=== PATIENT | male | born 1935 | race Caucasian/White ===

== ENCOUNTER 2022-04-02 11:21 | Outpatient (CLI) | payer MEDICARE, BC, SELFPAY ==
[2022-04-02 12:45] LABS: Albumin* 3.9 g/dL (3.3-5.0); Chloride* 104 mmol/L (96-114)
[2022-04-02 12:46] LABS: Potassium* 4.1 mmol/L (3.6-5.1); Sodium* 141 mmol/L (135-149)
[2022-04-02 12:48] LABS: Aspartate Amino Transferase* 25 U/L (12-35); Bilirubin Total* 0.7 mg/dL (0.1-1.5); Blood Urea Nitrogen* 18 mg/dL (7-30); Carbon Dioxide* 32 mmol/L (20-32); Creatinine* 0.8 mg/dL (0.5-1.5); Estimated Glomerular Filt Rate 87 ml/min; Total Protein* 6.5 g/dL (6.0-8.3)
[2022-04-02 12:49] LABS: Alanine Aminotransferase* 25 U/L (4-50); Alkaline Phosphatase* 122 U/L (40-150); Calcium* 9.2 mg/dL (8.4-10.6); Glucose* 83 mg/dL (60-115)
== END 2022-04-02 11:22 | disposition home or self-care (01) ==
PROVIDERS: Visit Provider Family Medicine
DX: Z00.00 Encounter for general adult medical examination without abnormal findings (principal); I10 Essential (primary) hypertension
CPT/HCPCS: 80053

== ENCOUNTER 2022-05-20 06:20 | Day surgery (SDC) | payer MEDICARE, BC, SELFPAY ==
[2022-05-20] VITALS (9 sets, daily range): BP systolic 141–205; BP diastolic 85–116; PULSE 58–77; RESP 16; TEMP 36.6–36.9; O2SAT 87–98; BMI 28.4
--- NOTE | 2022-05-20 06:29 | SUR.PREOP ---
HOME COVID NEGATIVE.
[2022-05-20] MEDS: LACTATED RINGERS 1000 ML 1,000 ML 100 ML IV (06:45)
[2022-05-20] MEDS: SODIUM CHLORIDE 0.9 % (FLUSH) 10 ML SYRINGE IVF (06:45)
--- NOTE | 2022-05-20 07:15 | W.ANESCHARGE ---
Anesthesia Charges Start Date/Time Anesthesia Start Date: 05/20/22 Anesthesia Start Time: 07:26 Stop Date/Time Anesthesia Stop Date: 05/20/22 Anesthesia Stop Time: 09:30 Summary Extremes of Age - Over 70 or under 1: MDA
[2022-05-20] MEDS: CEFAZOLIN 2 GM INJ IVP (07:31)
[2022-05-20] MEDS: BUPIVACAINE 0.25% 30 ML INJECTION (07:43)
--- NOTE | 2022-05-20 09:13 | P.GSOP_ITS ---
Operative Note Date of procedure: 05/20/22 Pre-op diagnosis: 1. Symptomatic right inguinal hernia. Post-op diagnosis: 1. Right indirect and direct inguinal hernia. Type of Procedure: 1. Open right inguinal hernia repair with mesh. Indications: 86-year-old male was seen in clinic for evaluation of right inguinal bulge that was present for years. Patient was diagnosed with bilateral inguinal hernias years ago and had left inguinal hernia repair. The right inguinal hernia was not bothering him for many years. Over time the bulge has been increasing in size. Patient started to feel pain over the right inguinal bulge. This pain was mostly prominent with heavy lifting and being active while cutting wood, snow blowing a long driveway, and woodworking. On clinical exam patient had a moderately-sized right inguinal hernia extending to the superior border of the scrotum. The hernia was reducible. Given patient's clinical history and his physical exam, an open right inguinal hernia repair was recommended. The procedure was discussed in detail. The risks associated procedure including infection, bleeding, nerve injury, nerve pain, and hernia recurrence were all discussed with the patient, and he agreed to proceed. Procedure Description: After discussing the risks and benefits of the procedure, the patient signed informed consent.? The operative site was marked and the patient was brought to the operating room and placed on the operating table in supine position.? Care was taken to pad the patient's pressure points.?? The patient was then sedated by anesthesia.?? The operative site was then prepped and draped in the usual sterile fashion.? A time-out was then performed. Surgical site was prepped and draped in sterile fashion. Site of the incision was marked with a marking pen on the right side and local anesthetic was injected. An oblique incision was made just above and medial to inguinal ligament. Subcutaneous tissue was dissected to external obliques. Small incision was made through the external oblique aponeurosis with scalpel. I then used Metzenbaum scissors to dissect under external obliques and extend my incision. Mosquito clamps were placed on the edges of external oblique exposing the inguinal floor. The right Ilioinguinal nerve was identified and was going through the plain of dissection. The nerve was divided proximally and distally and a 3 cm segment of it was excised. This was not sent to pathology. I then identified the spermatic cord and the hernia sac. I bluntly dissected subcutaneous tissues in order to place Nicolette drain around the cord structures. Cremasteric fibers were peeled off and dissected off the hernia sac and cord structures. There was evidence of indirect inguinal hernia. There was also a direct inguinal hernia protruding immediately superior to the pubic tubercle. Preperitoneal fat was noted to be protruding in the direct hernia. The indirect hernia sac was from the spermatic cord bluntly and with cautery. The indirect hernia sac was incised and examined from the inside. The hernia sac was bilobed and fat was incarcerated in the medial part of the hernia sac. This fat was a part of the hernia sac. It was dissected off the hernia sac and excised was cautery. Hemostasis was achieved with cautery and Vicryl ties. No intraabdominal organs were incarcerated in the hernia sac. A stitch using 2-0 Vicryl was placed near the base of the hernia sac through the sac and the hernia sac tied off. Hernia sac was then excised and not sent to pathology. The cut edge of the hernia sac was then oversewn with a running locking 3-0 Vicryl suture. This was then pushed into preperitoneal space through the internal r ing. Surgical field was examined for bleeding and hemostasis was achieved with cautery and Vicryl ties. An extra-large Bard mesh plug was inserted through the internal ring and secured to the adjacent tissues with interrupted 0-0 Neurolon sutures. I also used a medium-sized Bard mesh plug for the direct hernia space. This mesh plug was secured in place with interrupted 0-0 Nurolon sutures. A large Bard mesh onlay was also used for hernia repair. The mesh onlay was sutured in place with interrupted 0-0 Neurolon sutures to the conjoint tendon medially and shelving edge laterally, pubic tubercle inferiorly. Simple interrupted sutures were placed using 0-0 Neurolon at the base of internal inguinal ring making it only large enough to fit a tip of one finger through. Spermatic cord was placed back into scrotum. [place] drain was removed. External oblique aponeurosis was closed with a running 3-0 Vicryl. Additional local anesthetic was injected into subcutaneous tissues. Adalid's fascia and subcutaneous tissue was re- approximated with interrupted Vicryl stitches. Skin incision was closed with 4-0 Monocryl subcuticular stitch. Steri strips and sterile dressing were applied over incision. All counts were correct at the end of the case. Patient tolerated this procedure well and was transferred to PACU in stable condition. Findings: Large internal inguinal ring with indirect hernia and also a smaller direct hernia just superior to the pubic tubercle. Implants: Mesh plugs x2, and mesh onlay. Anesthesia: MAC and local Surgeon: Gui Barrera MD Estimated blood loss (mL): 10 Condition: stable Disposition: same day
--- NOTE | 2022-05-20 09:19 | W.ANESCHARGE ---
Anesthesia Charges Start Date/Time Anesthesia Start Date: 05/20/22 Anesthesia Start Time: 07:26 Stop Date/Time Anesthesia Stop Date: 05/20/22 Anesthesia Stop Time: 09:30
[2022-05-20] MEDS: ALBUTEROL SULFATE 2.5 MG/3 ML VIAL.NEB NEB (10:10)
== END 2022-05-20 11:20 | disposition home or self-care (01) ==
PROVIDERS: PCP Family Medicine; Visit Provider Surgery
PROC: (CPT 49505; principal; 2022-05-20 07:30)
DX: K40.90 Unilateral inguinal hernia, without obstruction or gangrene, not specified as recurrent (principal)
CPT/HCPCS: 49505; 750; 830; 94640; 99100; C1781; J0690; J1100; J2405; J2704; J3010; J3490; J7120

== ENCOUNTER 2022-09-04 07:15 | Emergency (ER) | payer MEDICARE, BC, SELFPAY ==
[2022-09-04] VITALS (16 sets, daily range): BP systolic 142–188; BP diastolic 87–103; PULSE 51–61; RESP 18; TEMP 35.9; O2SAT 89–95; BMI 26.5
--- NOTE | 2022-09-04 07:58 | ED.GENADULT ---
HPI - General Adult General Time Seen by Provider: 07:58 Date Seen: 09/04/22 Chief complaint: Dizziness/Vertigo Stated complaint: dizzy and nausea Time Seen by Provider: 09/04/22 07:57 Source: patient and RN notes reviewed Mode of arrival: ambulatory Limitations: no limitations Related Data Previous Rx's Medication Instructions Recorded albuterol sulfate 90 mcg/actuation 2 puff inhalation Q4-6H PRN 05/06/22 aerosol inhaler (Ventolin HFA) shortness of breath or wheezing #8.5 grams Allergies Allergy/AdvReac Type Severity Reaction Status Date / Time Shrimp Flavor Allergy Unknown breathing Uncoded 05/29/22 11:13 baking soda AdvReac Mild Uncoded 09/04/22 07:26 PFSH [facility] Medical History (Updated 05/17/22 @ 06:59 by Joelle Rios, RANDALL) Wrist fracture, right ?S62.101A - Fracture of unspecified carpal bone, right wrist, initial encounter for closed fracture (ICD-10) Hiatal hernia ?K44.9 - Diaphragmatic hernia without obstruction or gangrene (ICD-10) Thoracic aortic aneurysm ?I71.20 - Thoracic aortic aneurysm, without rupture, unspecified (ICD-10) HTN (hypertension) ?I10 - Essential (primary) hypertension (ICD-10) Surgical History (Updated 05/29/22 @ 11:14 by Gui Barrera MD) H/O right inguinal hernia repair ?Z98.890 - Other specified postprocedural states (ICD-10) ?Z87.19 - Personal history of other diseases of the digestive system (ICD-10) History of repair of hiatal hernia ?Z98.890 - Other specified postprocedural states (ICD-10) ?Z87.19 - Personal history of other diseases of the digestive system (ICD-10) H/O left inguinal hernia repair ?Z98.890 - Other specified postprocedural states (ICD-10) ?Z87.19 - Personal history of other diseases of the digestive system (ICD-10) Social History (Updated 04/10/22 @ 10:39 by Gui Barrera MD) Narrative: Patient denies smoking and rarely drinks alcohol. He is retired but is very active. He lives on his own but his daughter lives only 1.5 miles away from him and is helping him when he needs something. Smoking Status: Former smoker Do you use any of these nicotine containing products: None Second hand tobacco smoke exposure: No How often do you have a drink containing alcohol: never How often do you have six or more drinks on one occasion: Never AUDIT-C Alcohol total score: 0 Non-prescribed substance use: denies use Caffeine: Yes (COFFEE) Little interest or pleasure in doing things: not at all Feeling down, depressed, or hopeless: not at all service: No Exam Const: Vital Signs, click to edit/add: Vital Signs - 24 hr 09/04/22 07:27 Temperature 96.7 F L Pulse Rate [Pulse Oximeter] 57 L Respiratory Rate 18 Blood Pressure [Ri ght Upper Arm] 182/103 H Pulse Oximetry 92 Oxygen Delivery Me thod Room Air Course Vital Signs Vital signs: Initial Vital Signs Temperature 96.7 F L 09/04/22 07:27 Temperature Source Temporal Artery Scan 09/04/22 07:27 Pulse Rate 57 L 09/04/22 07:27 Respiratory Rate 18 09/04/22 07:27 Blood Pressure 182/103 H 09/04/22 07:27 Blood Pressure Mean 129 H 09/04/22 07:27 Blood Pressure Position Sitting 09/04/22 07:27 Pulse Oximetry 92 09/04/22 07:27 Oxygen Delivery Method Room Air 09/04/22 07:27 Vital Signs Temperature 96.7 F L 09/04/22 07:27 Pulse Rate 57 L 09/04/22 07:27 Respiratory Rate 18 09/04/22 07:27 Blood Pressure 182/103 H 09/04/22 07:27 Pulse Oximetry 92 09/04/22 07:27 Oxygen Delivery Method Room Air 09/04/22 07:27 Temperature 96.7 F L 09/04/22 07:27 Pulse Rate 57 L 09/04/22 07:27 Respiratory Rate 18 09/04/22 07:27 Blood Pressure 182/103 H 09/04/22 07:27 Pulse Oximetry 92 09/04/22 07:27 Oxygen Delivery Method Room Air 09/04/22 07:27 Discharge Plan Discharge Prescriptions: No Action albuterol sulfate [Ventolin HFA] 90 mcg/actuation HFA aerosol inhaler 2 puff inhalation Q4-6H PRN (Reason: shortness of breath or wheezing) Qty: 8.5 2RF Follow Up/Referrals: Balaji Del Toro MD [Primary Care Provider] -
--- NOTE | 2022-09-04 08:03 | ED_ITS ---
HPI - Dizziness General Date Seen: 09/04/22 <Roberto Carlos Wick MD - Last Filed: 09/05/22 12:07> Chief Complaint: Dizziness/Vertigo <Roberto Carlos Wick MD - Last Filed: 09/05/22 12:07> Stated Complaint: dizzy and nausea <Roberto Carlos Wick MD - Last Filed: 09/05/22 12:07> Time Seen by Provider: 09/04/22 07:57 <Roberto Carlos Wick MD - Last Filed: 09/05/22 12:07> Source: patient and family <Roberto Carlos Wick MD - Last Filed: 09/05/22 12:07> Mode of arrival: ambulatory <Roberto Carlos Wick MD - Last Filed: 09/05/22 12:07> Limitations: no limitations <Roberto Carlos Wick MD - Last Filed: 09/05/22 12:07> History of Present Illness HPI Narrative: Patient is an 87-year-old gentleman who presents here with the history of dizziness, this came on after he got up this morning he walked to a his kitchen, sat down and felt dizzy. Whenever he moves his head he notices that he feels like he is almost like a drunken soldier?. Has not drank alcohol for the last 11 years, no history of trauma falls, denies any problems with visual with this. He does not have ringing in his ears, he also does not have any numbness tingling weakness in his hands or his feet, he sat on the drive over here from [place] he fell fine until he had to get out of his car. He did throw up 3 times at home. Never before had this. <Roberto Carlos Wick MD - Last Filed: 09/05/22 12:07> MD elicited complaint: dizziness, lightheadedness, difficulty walking and disequilibrium <Roberto Carlos Wick MD - Last Filed: 09/05/22 12:07> Onset (ago): hour(s) <Roberto Carlos Wick MD - Last Filed: 09/05/22 12:07> Timing: sudden onset <Roberto Carlos Wick MD - Last Filed: 09/05/22 12:07> Severity: moderate <Roberto Carlos Wick MD - Last Filed: 09/05/22 12:07> Description: sense of movement, room spinning, off-balance and difficulty walking <Roberto Carlos Wick MD - Last Filed: 09/05/22 12:07> History of similar symptoms: No <Roberto Carlos Wick MD - Last Filed: 09/05/22 12:07> Exacerbating factors: change in body position <Roberto Carlos Wick MD - Last Filed: 09/05/22 12:07> Relieving factors: keeping eyes closed <Roberto Carlos Wick MD - Last Filed: 09/05/22 12:07> Associated symptoms: denies other symptoms <Roberto Carlos Wick MD - Last Filed: 09/05/22 12:07> Related Data Home Medications: Previous Rx's Medication Instructions Recorded albuterol sulfate 90 mcg/actuation 2 puff inhalation Q4-6H PRN 05/06/22 aerosol inhaler (Ventolin HFA) shortness of breath or wheezing #8.5 grams <Roberto Carlos Wick MD - Last Filed: 09/05/22 12:07> Allergies/Adverse Reactions: Allergies Allergy/AdvReac Type Severity Reaction Status Date / Time Shrimp Flavor Allergy Unknown breathing Uncoded 05/29/22 11:13 baking soda AdvReac Mild Uncoded 09/04/22 07:26 <Roberto Carlos Wick MD - Last Filed: 09/05/22 12:07> Review of Systems Status of ROS: Reports: 10 or more systems reviewed and unremarkable except as noted in History and below <Roberto Carlos Wick MD - Last Filed: 09/05/22 12:07> [facility] Medical History: Medical History Wrist fracture, right ?S62.101A - Fracture of unspecified carpal bone, right wrist, initial encounter for closed fracture (ICD-10) Hiatal hernia ?K44.9 - Diaphragmatic hernia without obstruction or gangrene (ICD-10) Thoracic aortic aneurysm ?I71.20 - Thoracic aortic aneurysm, without rupture, unspecified (ICD-10) HTN (hypertension) ?I10 - Essential (primary) hypertension (ICD-10) <Roberto Carlos Wick MD - Last Filed: 09/05/22 12:07> Surgical History: Surgical History H/O right inguinal hernia repair ?Z98.890 - Other specified postprocedural states (ICD-10) ?Z87.19 - Personal history of other diseases of the digestive system (ICD-10) History of repair of hiatal hernia ?Z98.890 - Other specified postprocedural states (ICD-10) ?Z87.19 - Personal history of other diseases of the digestive system (ICD-10) H/O left inguinal hernia repair ?Z98.890 - Other specified postprocedural states (ICD-10) ?Z87.19 - Personal history of other diseases of the digestive system (ICD-10) <Roberto Carlos Wick MD - Last Filed: 09/05/22 12:07> Social History: Social History Narrative: Patient denies smoking and rarely drinks alcohol. He is retired but is very active. He lives on his own but his daughter lives only 1.5 miles away from him and is helping him when he needs something. Smoking Status: Former smoker Do you use any of these nicotine containing products: None Second hand tobacco smoke exposure: No How often do you have a drink containing alcohol: never How often do you have six or more drinks on one occasion: Never AUDIT-C Alcohol total score: 0 Non-prescribed substance use: denies use Caffeine: Yes (COFFEE) Little interest or pleasure in doing things: not at all Feeling down, depressed, or hopeless: not at all service: No <Roberto Carlos Wick MD - Last Filed: 09/05/22 12:07> Exam Narrative: Exam Narrative: Patient is a 87-year-old gentleman here who presents with his daughter for evaluation of dizziness. He is speaking normally to me in the room, no slurring of his speech, facial symmetry is noted. GCS is 15/15, stroke scale is 0. Pupils equal round reactive to light, he has absence of nystagmus, at rest. Carotid upstrokes are equal bilaterally JVP is flat, cranial nerves 3-12 are normal, TMs bilaterally are normal, oropharynx is normal, some limitation of right-sided cervical rotation is noted. Which she says is chronic. Chest is clear heart sounds are normal no clicks murmurs or gallops abdomen is soft there is no guarding, bowel sounds no clicks murmurs or gallops noted. Moves all extremities independently well fine motor movements fingers nose testing is normal, distal and proximal muscle strength is equal and normal, muscle mass is normal, fine motor movements fingers nose testing is normal, appears to be right-handed. <Roberto Carlos Wick MD - Last Filed: 09/05/22 12:07> Const: Vital Signs, click to edit/add: Vital Signs - 24 hr 09/04/22 13:11 Pulse Rate 57 L Pulse Oximetry 89 <Roberto Carlos Wick MD - Last Filed: 09/05/22 12:07> Vital Signs, click to edit/add: Vital Signs - 24 hr 09/04/22 13:11 Pulse Rate 57 L Pulse Oximetry 89 <Yusra Benitez MD - Last Filed: 09/04/22 13:35> Documenting provider has reviewed patient's vital signs: yes <Roberto Carlos Wick MD - Last Filed: 09/05/22 12:07> Course Reevaluation(s) Time of Reevaluation #1: 09:47 <Yusra Benitez MD - Last Filed: 09/04/22 13:35> Reevaluation #1: Have reviewed with patient that head CT is not showing any acute abnormality. Did review with patient and his family however that small strokes would not necessarily show up on a head CT. He maybe is feeling a bit better but sometimes if he moves will feel the imbalance type vertigo symptom. I am going to have nursing staff walk him. If he is not completely improved, will consider MRI of his brain. Of note his blood pressure systolic is now 140 and improved. It was elevated to a systolic of 180 when he came in. I do not see any nystagmus at this time. Nursing staff reported that patient was able to ambulate but complained a lot of dizziness or vertigo, especially when he 1st was getting up and then when turning with walking. We are going to proceed with brain MRI. <Yusra Benitez MD - Last Filed: 09/04/22 13:35> Time of Reevaluation #2: 13:30 <Yusra Benitez MD - Last Filed: 09/04/22 13:35> Reevaluation #2: Have reviewed with patient the MRI is not showing any acute ischemia. Did review the amyloid. He states his memory isn't quite what it used to be. Did review with him that this is a finding that can be associated with cognitive impairment/dementia. Recommend follow up with his primary care provider. Also recommended that he work on controlling his blood pressure for improved cardiovascular risks. He did not seem to enthusiastically about doing this. <Yusra Benitez MD - Last Filed: 09/04/22 13:35> Consultations Consultation #1: Have spoken with Dr. Moscoso from [facility]rology at [place]. Case reviewed. No further interventions needed, did recommend treating hypertension which we will have patient follow-up with his primary care provider. <Yusra Benitez MD - Last Filed: 09/04/22 13:35> Time: 13:07 <Yusra Benitez MD - Last Filed: 09/04/22 13:35> Vital Signs Vital signs: Initial Vital Signs Temperature 96.7 F L 09/04/22 07:27 Temperature Source Temporal Artery Scan 09/04/22 07:27 Pulse Rate 57 L 09/04/22 07:27 Respiratory Rate 18 09/04/22 07:27 Blood Pressure 182/103 H 09/04/22 07:27 Blood Pressure Mean 129 H 09/04/22 07:27 Blood Pressure Position Sitting 09/04/22 07:27 Pulse Oximetry 92 09/04/22 07:27 Oxygen Delivery Method Room Air 09/04/22 07:27 Vital Signs Temperature 96.7 F L 09/04/22 07:27 Pulse Rate 57 L 09/04/22 07:27 Respiratory Rate 18 09/04/22 07:27 Blood Pressure 182/103 H 09/04/22 07:27 Pulse Oximetry 92 09/04/22 07:27 Oxygen Delivery Method Room Air 09/04/22 07:27 Temperature 96.7 F L 09/04/22 07:27 Pulse Rate 57 L 09/04/22 13:11 Respiratory Rate 18 09/04/22 07:27 Blood Pressure 142/87 H 09/04/22 09:32 Pulse Oximetry 89 09/04/22 13:11 Oxygen Delivery Method Room Air 09/04/22 07:27 <Roberto Carlos Wick MD - Last Filed: 09/05/22 12:07> Initial Vital Signs Temperature 96.7 F L 09/04/22 07:27 Temperature Source Temporal Artery Scan 09/04/22 07:27 Pulse Rate 57 L 09/04/22 07:27 Respiratory Rate 18 09/04/22 07:27 Blood Pressure 182/103 H 09/04/22 07:27 Blood Pressure Mean 129 H 09/04/22 07:27 Blood Pressure Position Sitting 09/04/22 07:27 Pulse Oximetry 92 09/04/22 07:27 Oxygen Delivery Method Room Air 09/04/22 07:27 Vital Signs Temperature 96.7 F L 09/04/22 07:27 Pulse Rate 57 L 09/04/22 07:27 Respiratory Rate 18 09/04/22 07:27 Blood Pressure 182/103 H 09/04/22 07:27 Pulse Oximetry 92 09/04/22 07:27 Oxygen Delivery Method Room Air 09/04/22 07:27 Temperature 96.7 F L 09/04/22 07:27 Pulse Rate 57 L 09/04/22 13:11 Respiratory Rate 18 09/04/22 07:27 Blood Pressure 142/87 H 09/04/22 09:32 Pulse Oximetry 89 09/04/22 13:11 Oxygen Delivery Method Room Air 09/04/22 07:27 <Yusra Benitez MD - Last Filed: 09/04/22 13:35> MDM - Dizziness MDM Narrative Medical decision making narrative: Life-threatening differential diagnosis considered include, CVA, other differential diagnosis include BPPV, labyrinthitis, Meniere's disease, vestibular neuronitis, migraine, multiple sclerosis, otitis media, viral syndrome as well as other etiologies. He also is tells me feels weak, for that reason I will do a troponin and also an EKG I will sign over to my partner, for further care and delineation. <Roberto Carlos Wick MD - Last Filed: 09/05/22 12:07> Medical Records Attestation: I reviewed the patient's medical records. <Roberto Carlos Wick MD - Last Filed: 09/05/22 12:07> Lab Data Attestation: I reviewed the patient's lab results. <Yusra Benitez MD - Last Filed: 09/04/22 13:35> Labs: Lab Results 09/04/22 09/04/22 Range/Units 07:50 09:50 WBC 7.70 (4.50-11.00) K/uL RBC 5.23 (4.30-5.90) m/uL Hgb 15.8 (13.5-17.5) gm/dL Hct 48.7 (37.0-53.0) % MCV 93 (80-100) fL MCH 30 (26-34) pg MCHC 32 (32-36) gm/dL RDW Coeff of Jeniffer 13.7 (11.5-15.5) % Plt Count 146 (140-440) K/uL Neut % (Auto) 76.4 H (42.0-72.0) % Lymph % (Auto) 13.2 L (20-44) % [place] % (Auto) 6.1 (0.0-11.0) % Eos % (Auto) 3.2 (0.0-7.0) % Baso % (Auto) 0.8 (0.0-3.0) % Neut # (Auto) 5.90 (1.7-7.0) K/uL Lymph # (Auto) 1.00 (0.90-2.90) K/uL [place] # (Auto) 0.50 (0.00-0.90) K/UL Eos # (Auto) 0.25 (0.00-0.50) K/uL Baso # (Auto) 0.06 (0.00-0.30) K/uL Sodium 136 (135-149) mmol/L Potassium 3.9 (3.6-5.1) mmol/L Chloride 103 (96-114) mmol/L Carbon Dioxide 30 (20-32) mmol/L BUN 19 (7-30) mg/dL Creatinine 0.8 (0.5-1.5) mg/dL Estimated Creat Clear 51.30 Estimated GFR 86 ml/min Glucose 101 (60-115) mg/dL Calcium 8.8 (8.4-10.6) mg/dL Urine Color Yellow (Yellow) Urine Appearance Cloudy A (Clear) Urine pH 7.5 (5.0-8.5) Ur Specific [place] 1.020 (1.000-1.030) Urine Protein Negative (Negative) Urine Glucose (UA) Negative (Negative) Urine Ketones Negative (Negative) Urine Blood Negative (Negative) Urine Nitrite Positive A (Negative) Urine Bilirubin Negative (Negative) Urine Urobilinogen 1.0 (0.2-1.0) Ur Leukocyte Esterase Negative (Negative) Urine RBC 0-2 (0-2) Urine WBC 0-2 (0-5) Ur Squamous Epith Cells None (None-Few) Urine Bacteria Many A (None) POC Troponin I 0.00 L (0.01-0.04) ng/ml <Roberto Carlos Wick MD - Last Filed: 09/05/22 12:07> Lab Results 09/04/22 09/04/22 Range/Units 07:50 09:50 WBC 7.70 (4.50-11.00) K/uL RBC 5.23 (4.30-5.90) m/uL Hgb 15.8 (13.5-17.5) gm/dL Hct 48.7 (37.0-53.0) % MCV 93 (80-100) fL MCH 30 (26-34) pg MCHC 32 (32-36) gm/dL RDW Coeff of Jeniffer 13.7 (11.5-15.5) % Plt Count 146 (140-440) K/uL Neut % (Auto) 76.4 H (42.0-72.0) % Lymph % (Auto) 13.2 L (20-44) % [place] % (Auto) 6.1 (0.0-11.0) % Eos % (Auto) 3.2 (0.0-7.0) % Baso % (Auto) 0.8 (0.0-3.0) % Neut # (Auto) 5.90 (1.7-7.0) K/uL Lymph # (Auto) 1.00 (0.90-2.90) K/uL [place] # (Auto) 0.50 (0.00-0.90) K/UL Eos # (Auto) 0.25 (0.00-0.50) K/uL Baso # (Auto) 0.06 (0.00-0.30) K/uL Sodium 136 (135-149) mmol/L Potassium 3.9 (3.6-5.1) mmol/L Chloride 103 (96-114) mmol/L Carbon Dioxide 30 (20-32) mmol/L BUN 19 (7-30) mg/dL Creatinine 0.8 (0.5-1.5) mg/dL Estimated Creat Clear 51.30 Estimated GFR 86 ml/min Glucose 101 (60-115) mg/dL Calcium 8.8 (8.4-10.6) mg/dL Urine Color Yellow (Yellow) Urine Appearance Cloudy A (Clear) Urine pH 7.5 (5.0-8.5) Ur Specific [place] 1.020 (1.000-1.030) Urine Protein Negative (Negative) Urine Glucose (UA) Negative (Negative) Urine Ketones Negative (Negative) Urine Blood Negative (Negative) Urine Nitrite Positive A (Negative) Urine Bilirubin Negative (Negative) Urine Urobilinogen 1.0 (0.2-1.0) Ur Leukocyte Esterase Negative (Negative) Urine RBC 0-2 (0-2) Urine WBC 0-2 (0-5) Ur Squamous Epith Cells None (None-Few) Urine Bacteria Many A (None) POC Troponin I 0.00 L (0.01-0.04) ng/ml <Yusra Benitez MD - Last Filed: 09/04/22 13:35> Imaging Data CT scan - head: Attestation: I have reviewed the pertinent imaging results. <Yusra Robbins MD - Last Filed: 09/04/22 13:35> Radiologist's impression: Patient: AGNES COBIAN Facility:?[facility] Patient ID:?[id number] Site Patient ID:?[id number] Site :?[id number] Study:?CT Head WITHOUT-09/04/2022 9:23:39 AM Ordering Physician:Linette Azevedo Final Report: INDICATION: Dizziness COMPARISON: None TECHNIQUE: CT examination of the head was performed as axial sections without intravenous contrast. Images were obtained from the vertex of the skull through the skull base. Please note that all CT scans at this facility use dose modulation, iterative reconstruction, and/or weight-based dosing when appropriate to reduce radiation dose to as low as reasonably achievable. FINDINGS: The brain shows no sign of mass lesion, mass effect, hemorrhage, or edema. There are involutional changes. There is moderate cortical atrophy and there is moderate to severe white matter disease. There is no hydrocephalus. The visualized portions of the orbits are normal in appearance. The osseous structures are normal in appearance with no sign of abnormality in the skull base or calvarium. IMPRESSION: Involutional changes. No acute-appearing findings. Please note that all CT scans at this facility use dose modulation, iterative reconstruction, and/or weight-based dosing when appropriate to reduce radiation dose to as low as reasonably achievable. Dictated by Ken Conn MD @ 09/04/2022 9:31:14 AM (Electronic Signature) <Yusra Benitez MD - Last Filed: 09/04/22 13:35> MRI - head: Attestation: I have reviewed the pertinent imaging results. <Yusra Robbins MD - Last Filed: 09/04/22 13:35> Radiologist's impression: Patient: AGNES COBIAN Facility:?[facility] Patient ID:?[id number] Site Patient ID:?[id number]. Site :?[id number] Study:?MRI Head W/O-09/04/2022 11:02:40 AM Ordering Physician:Rafael Meng Final Report: INDICATION: Vertigo. Imbalance. Dizziness. TECHNIQUE: Brain MRI without contrast. The following sequences were obtained: Sagittal T1 weighted sequence. DWI and ADC mapping sequences. Axial FLAIR and SAMUEL T2 weighted sequences. Susceptibility or GRE sequence. COMPARISON: Head CT from 09/04/2022. FINDINGS: No evidence of acute ischemia. Multiple foci of susceptibility artifact within both cerebral hemispheres, consistent with micro hemorrhages. Patchy T2/FLAIR hyperintensity within the supratentorial white matter and to a lesser extent the central brainstem, typical for chronic microvascular ischemic changes. No mass effect or herniation. No hydrocephalus or extra-axial collections. The pituitary gland, parasellar structures and optic chiasm are normal. All the major intracranial vascular structures demonstrate normal flow-related signal. The orbital contents are normal. No calvarial or skull base marrow replacing process. Moderate to high-grade mucosal thickening involving the frontoethmoidal recesses, right-sided ethmoid air cells and maxillary sinuses. No extracranial soft tissue findings. IMPRESSION: 1. No acute infarction or other acute intracranial pathology. 2. Moderate chronic microvascular ischemic changes within the supratentorial white matter. 3. Multiple cerebral microbleeds, likely chronic and due to amyloid angiopathy given their distribution. <Yusra Benitez MD - Last Filed: 09/04/22 13:35> Discharge Plan Discharge Clinical Impression: Vertigo, Imbalance <Roberto Carlos Wick MD - Last Filed: 09/05/22 12:07> Patient Disposition: Home, Self-Care <Roberto Carlos Wick MD - Last Filed: 09/05/22 12:07> Condition: Stable <Roberto Carlos Wick MD - Last Filed: 09/05/22 12:07> Instructions: Vertigo (ED) <Roberto Carlos Wick MD - Last Filed: 09/05/22 12:07> Additional Instructions: No evidence of stroke was found. Do need to follow up in clinic for recheck of your blood pressure, highly recommend treating for hypertension for brain and vessel protection if blood pressure remains elevated. The MRI did show some amyloid deposits which can go long with cognitive impairment and dementia, can talk to your primary care provider about this further. We are not diagnosing either of these conditions in the ER at this time, can be talked about worked up further with your primary care provider if felt applicable. Recommend physical therapy referral if you have ongoing vertigo, can get this through your primary care provider. Meclizine is sold [id number] and can be taken if you have ongoing vertigo symptoms. This medicine can be sedating, need to be careful with activity or any operation of machinery while taking it. <Roberto Carlos Wick MD - Last Filed: 09/05/22 12:07> Prescriptions: No Action albuterol sulfate [Ventolin HFA] 90 mcg/actuation HFA aerosol inhaler 2 puff inhalation Q4-6H PRN (Reason: shortness of breath or wheezing) Qty: 8.5 2RF <Roberto Carlos Wick MD - Last Filed: 09/05/22 12:07> Follow Up/Referrals: Balaji Del Toro MD [Primary Care Provider] - <Roberto Carlos Wick MD - Last Filed: 09/05/22 12:07> Stand Alone Forms: My[facility] Info Instructions <Roberto Carlos Wick MD - Last Filed: 09/05/22 12:07>
--- NOTE | 2022-09-04 08:08 | CRLHL7_ITS ---
For Patients: As a result of the Century Cures Act, medical imaging exams and procedure reports are released immediately into your electronic medical record. You may view this report before your referring provider. If you have questions, please contact your health care provider. INDICATION: Dizziness COMPARISON: None TECHNIQUE: CT examination of the head was performed as axial sections without intravenous contrast. Images were obtained from the vertex of the skull through the skull base. Please note that all CT scans at this facility use dose modulation, iterative reconstruction, and/or weight-based dosing when appropriate to reduce radiation dose to as low as reasonably achievable. FINDINGS: The brain shows no sign of mass lesion, mass effect, hemorrhage, or edema. There are involutional changes. There is moderate cortical atrophy and there is moderate to severe white matter disease. There is no hydrocephalus. The visualized portions of the orbits are normal in appearance. The osseous structures are normal in appearance with no sign of abnormality in the skull base or calvarium. IMPRESSION: Involutional changes. No acute-appearing findings. Please note that all CT scans at this facility use dose modulation, iterative reconstruction, and/or weight-based dosing when appropriate to reduce radiation dose to as low as reasonably achievable. Dictated by Ken Conn MD @ 09/04/2022 9:31:14 AM (Electronically Signed)
[2022-09-04 08:17] LABS: Basophils Absolute Auto 0.06 K/uL (0.00-0.30); Basophils Percent Auto 0.8 % (0.0-3.0); Eosinophils Absolute Auto 0.25 K/uL (0.00-0.50); Eosinophils Percent Auto 3.2 % (0.0-7.0); Hematocrit 48.7 % (37.0-53.0); Hemoglobin* 15.8 gm/dL (13.5-17.5); Immature Granulocytes Abs Auto 0.02 K/uL (0.00-0.30); Immature Granulocytes Pct Auto 0.3 %; Lymphocytes Percent Auto 13.2 % (20-44); Mean Corpuscular HGB Conc 32 gm/dL (32-36); Mean Corpuscular Hemoglobin 30 pg (26-34); Mean Corpuscular Volume 93 fL (80-100); Monocytes Percent Auto 6.1 % (0.0-11.0); Neutrophils Percent Auto 76.4 % (42.0-72.0); Platelet Count* 146 K/uL (140-440); RDW Coefficient of Variation % 13.7 % (11.5-15.5); Red Blood Count 5.23 m/uL (4.30-5.90)
[2022-09-04] MEDS: 0.9 % SODIUM CHLORIDE 1000 ml 1,000 ML IV (08:23)
[2022-09-04 08:24] LABS: Slide Review Reflex No
[2022-09-04] MEDS: ONDANSETRON 2 MG/ML inj 4 MG IVP (08:24)
[2022-09-04] MEDS: LORazepam 2 MG/ML inj 0.5 MG IVP (08:24)
[2022-09-04 08:32] LABS: Chloride* 103 mmol/L (96-114)
[2022-09-04 08:33] LABS: Potassium* 3.9 mmol/L (3.6-5.1); Sodium* 136 mmol/L (135-149)
[2022-09-04 08:35] LABS: Creatinine* 0.8 mg/dL (0.5-1.5); Estimated Glomerular Filt Rate 86 ml/min
[2022-09-04 08:36] LABS: Blood Urea Nitrogen* 19 mg/dL (7-30); Calcium* 8.8 mg/dL (8.4-10.6); Carbon Dioxide* 30 mmol/L (20-32); Glucose* 101 mg/dL (60-115)
--- NOTE | 2022-09-04 09:18 | ED.NURSE ---
Patient self-caths regularly at home, is provided a kit to complete this. Denies need for assistance.
--- NOTE | 2022-09-04 09:40 | ED.NURSE ---
Patient ambulated at MD request. He experiences dizziness with position change from cot to standing, and at end of hallway when turning around. He is able to ambulate independently but notes it's definitely not my norm. Dr. Damon notified.
--- NOTE | 2022-09-04 09:49 | CRLHL7_ITS ---
For Patients: As a result of the Cures Act, medical imaging exams and procedure reports are released immediately into your electronic medical record. You may view this report before your referring provider. If you have questions, please contact your health care provider. INDICATION: Vertigo. Imbalance. Dizziness. TECHNIQUE: Brain MRI without contrast. The following sequences were obtained: Sagittal T1 weighted sequence. DWI and ADC mapping sequences. Axial FLAIR and SAMUEL T2 weighted sequences. Susceptibility or GRE sequence. COMPARISON: Head CT from 09/04/2022. FINDINGS: No evidence of acute ischemia. Multiple foci of susceptibility artifact within both cerebral hemispheres, consistent with micro hemorrhages. Patchy T2/FLAIR hyperintensity within the supratentorial white matter and to a lesser extent the central brainstem, typical for chronic microvascular ischemic changes. No mass effect or herniation. No hydrocephalus or extra-axial collections. The pituitary gland, parasellar structures and optic chiasm are normal. All the major intracranial vascular structures demonstrate normal flow-related signal. The orbital contents are normal. No calvarial or skull base marrow replacing process. Moderate to high-grade mucosal thickening involving the frontoethmoidal recesses, right-sided ethmoid air cells and maxillary sinuses. No extracranial soft tissue findings. IMPRESSION: 1. No acute infarction or other acute intracranial pathology. 2. Moderate chronic microvascular ischemic changes within the supratentorial white matter. 3. Multiple cerebral microbleeds, likely chronic and due to amyloid angiopathy given their distribution. Dictated by Leonel Faria MD @ 09/04/2022 11:14:20 AM (Electronically Signed)
[2022-09-04 10:05] LABS: Appearance Urine Cloudy (Clear); Bilirubin Urine Negative (Negative); Blood Urine Negative (Negative); Color Urine Yellow (Yellow); Glucose Urine Negative (Negative); Ketones Urine Negative (Negative); Leukocyte Esterase Urine Negative (Negative); Nitrite Urine Positive (Negative); Protein Urine Negative (Negative); pH Urine 7.5 (5.0-8.5)
[2022-09-04 10:11] LABS: Bacteria Urine Many; RBC Urine 0-2 (0-2); WBC Urine 0-2 (0-5)
--- NOTE | 2022-09-04 11:29 | ED.NURSE ---
pt straight cathed self for 800 cc clear yellow urine
--- NOTE | 2022-09-04 13:18 | ED.NURSE ---
Patient self cathing while here in the ER. Larger outputs. 450 cc out last cath at 13:00
== END 2022-09-04 13:51 | disposition home or self-care (01) ==
PROVIDERS: Emergency Provider Family Medicine; PCP Family Medicine
DX: R42 Dizziness and giddiness (principal); R26.89 Other abnormalities of gait and mobility
CPT/HCPCS: 36415; 70450; 70551; 80048; 81001; 84484; 85025; 87086; 87186; 93005; 96374; 96375; 99284; 99285; J2060; J2405; J7030

== ENCOUNTER 2024-07-23 19:56 | Observation (INO) | payer MEDICARE, BC, SELFPAY ==
[2024-07-23] VITALS (29 sets, daily range): BP systolic 151–194; BP diastolic 83–117; PULSE 52–76; RESP 15–20; TEMP 36.2; O2SAT 90–95; BMI 27.4
--- OUTSIDE RECORDS SUMMARY | 2024-07-23 19:58 | XMS_ITS | Clinical Summary ---
Author Organization [facility] Address [address] [place] [address] Care Team Providers Care Auto Cleaner Name Role Phone None Reported, Pcp Primary Care Provider Unavail able Source Comments Patient records contain information from all sites at [facility]. For routine questions regarding patient records, call [phone] during business hours, M-F 8:00 AM - 5:00 PM Central Time. Record requests for emergency care only can be directed to [phone] at any time.[facility] Allergies Active Allergy Reactions Criticality Noted Date Comments Iodinated Contrast Media GI intolerance 011 Monosodium Glutamate Other (see comments) 04/16 Shrimp GI intolerance 03/20/2018 Sodium Gluconate GI intolerance 05/29/2013 IODINE-131 Medications CALCIUM CARB/VIT D3/MINERALS (CALCIUM-VITAMI N D ORAL) Take 1 tablet by mouth 2 (two) times a day. 5 Active diphenhydrAMINE (for_BENADRYL) 25 mg capsule Take 1 capsule by mouth as needed. 5 Active atorvastatin (LIPITOR) 10 mg tablet Take 1 tablet (10 mg total) by mouth at bedtime. 90 tablet 3 8 Active metoprolol succinate (TOPROL-XL) 25 mg 24 hr tablet TAKE ONE TABLET BY MOUTH EVERY DAY FOR HYPERTENSION 90 tablet 3 8 Active Additional Information Patient not taking.Reported on 01/19/2024 losartan (COZAAR) 25 mg tablet Take 1 tablet (25 mg total) by mouth daily. 90 tablet 3 9 Active methylcellulose , laxative, (CITRUCEL) 500 mg tablet Take 2 tablets (1,000 mg total) by mouth daily. 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 11/25/2011 Asthma NOS 09/10/2011 Overview (07/23/2016): Asthma UNKNOWN DATE OF ONSET Hypertension Essential Primary 04/11/2010 Resolved Problems Problem Noted Date Diagnosed Date Resolved Date Hernia Inguinal Left 03/04/2018 019 Overview (03/04/2018): Added automatically from request for surgery [id number] Hypertension Chronic 01/09/2015 018 Overview (07/23/2016): Hypertension (HTN) Chronic Pain Chest 12/23/2013 10/13/2018 Encounters Date Type Department Care Team Description 04/27/2024 Clinical Communication Department of Urology in [address] [id number] Elizabet Walter, MPAS, P.A.-C., P.A. Forms ([facility] ) from Last 3 Months Immunizations Immunization Administration Dates Next Due PPSV23 11/10/2012 Td (Adult), adsorbed 04/21/2006 Tdap 04/21/2006 Social History Tobacco Use Types Packs/Day Years Used Date Smoking Tobacco: Former Cigarettes Q uit: 03/10/1963 Smokeless Tobacco: Never Tobacco Cessation:Counseling Given: Not Answered Alcohol Use Standard Drinks/Week Comments No 0 (1 standard drink = 0.6 oz pur e alcohol) PHQ-2 Answer Date Recorded PHQ-2 Score 0 08/11/2018 Nutrition Answer Date Recorded Nutrition: EVOO Fat Source Unknown 05/04 Nutrition: Servings of Fruits/Vegetables per Day Not on file 05/04/2020 Dental Answer Date Recorded Dental: Regular Dentist Unknown 05/05/19 21 Sex and Gender Information Value Date Recorded Sex Assigned at Not on file Legal Sex 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 Gender Identity Not on file Sexual Orientation Not on file Last Filed Vital Signs Vital Sign Reading Time Taken Comments Blood Pressure 162/88 03/18/2022 12:26 PM FISH CLEANER MACHINE TENDER Pulse 66 03/18/2022 12:26 PM FISH CLEANER MACHINE TENDER Temperature 36.7 C (98.1 F) 03/18/2022 12:26 PM FISH CLEANER MACHINE TENDER Respiratory Rate 16 03/18/2022 12:26 PM FISH CLEANER MACHINE TENDER Oxygen Saturation 92% 03/18/2022 12:26 PM FISH CLEANER MACHINE TENDER Inhaled Oxygen Concentration - - Weight 83.2 kg (183 lb 6.8 oz) 03/18/2022 12:31 PM FISH CLEANER MACHINE TENDER Height 170.5 cm (5' 7.13) 03/09/2019 7:43 AM CS T Body Mass Index 28.62 03/09/2019 7:43 AM FISH CLEANER MACHINE TENDER Plan of Treatment Health Maintenance Due Date Last Done Comments Zoster Vaccines (1 of 2) 1986 RSV vaccine - (32-3 6 weeks) or 60+ years (1 - 1-dose 75+ series) 08/08/2011 Pneumococcal vaccine (50+ years) (2 of 2 - PCV) 11/10/2013 11/10/2012 DTaP,Tdap,and Td Vaccines (3 - Td or Tdap) 04/21/2016 04/21/2006, 04/21/2006 COVID-19 Vaccine (4 - 2023-2 5 season) 2023 04/10/2021, 05/23/2020, 05/02/2020 Influenza Vaccine (#1) 2023 Depression Screening (Annual PHQ-2) 03/03/2024 Fall Risk Screen (Annual) 03/03/2024 IPV Vaccines Aged Out No longer eligi ble based on patient's age to complete this topic Medical Devices Implanted Type Area Custody Officer Device Identifier Shelf Expiration Date Model / Serial / Lot Hardware E.G. Pins/Screws/Ro ds Hardware e.g. pins/screws /rods Right: Wrist Msh Prl Latisha Polyprp 3x6 - [id number] Implanted:Qty: 1 on 03/25/2018 by Jefe Elizabeth M.D. at [facility] Mesh or Patch Left: Abdomen Ethicon [id number] 06/30/2020 PMII / / [id number] Insurance [place] [address] MEDICARE Advance Directives For more information, please contact: [phone] * Full Code (Latest Code Status on File) Date Activated Date Inactivated Comments 03/25/2018 10:18 AM 03/25/2018 8:57 PM Question Answer Comments Full Code: Discussed Care Teams Auto Cleaner Relationship Specialty Start Date End Date None Reported, Pcp PCP - General Family Medicine 05/08/22
--- NOTE | 2024-07-23 20:26 | ED.GENADULT ---
HPI - General Adult General Chief complaint: Chest Pain Stated complaint: hypertension Time Seen by Provider: 07/23/24 20:05 Source: patient Mode of arrival: ambulatory Limitations: no limitations History of Present Illness HPI narrative: 88-year-old male coming in today complaining of feeling dizzy. Patient states that shortly after supper he stood up and the room started spinning around him. He then vomited twice. He states that since then he feels very dizzy as if the room continues to spin around him on and off. He does feel better if he closes his eyes. He is not sure if looking 1 way or the other makes it worse. He denies having headache or neck pain. He denies any recent falls. He denies any recent changes in his bowel habits, no recent illness. Patient states that every now and then he has anterior chest discomfort that lasts a few seconds and then goes away. This comes and goes since the dizziness started. He is not short of breath. He denies any changes in his symptoms habits. The patient did have a similar episode in 2022. At that time CT and MRI were done and were unremarkable for evidence of stroke. Blood pressure treatment was recommended at that time, patient states that he was on blood pressure medication shortly and then was taken off of it by his primary care provider. Patient states that he has noticed his leg swelling over the last month. Related Data Previous Rx's ?Medication ?Instructions ?Recorded albuterol sulfate 90 mcg/actuation 2 puff inhalation Q4-6H PRN 01/30/24 aerosol inhaler (Ventolin HFA) shortness of breath or wheezing #8.5 grams fluticasone propionate 115 2 puff inhalation Q12H #12 grams 03/09/24 mcg-salmeterol 21 mcg/actuation HFA inhaler (Advair HFA) Allergies Allergy/AdvReac Type Severity Reaction Status Date / Time Shrimp Flavor Allergy Unknown breathing Uncoded 02/02/24 11:15 baking soda AdvReac Mild Uncoded 02/02/24 11:15 Review of Systems Status of ROS: Reports: 10 or more systems reviewed and unremarkable except as noted in History and below [facility] Medical History Wrist fracture, right ?S62.101A - Fracture of unspecified carpal bone, right wrist, initial encounter for closed fracture (ICD-10) Hiatal hernia ?K44.9 - Diaphragmatic hernia without obstruction or gangrene (ICD-10) Thoracic aortic aneurysm ?I71.20 - Thoracic aortic aneurysm, without rupture, unspecified (ICD-10) HTN (hypertension) ?I10 - Essential (primary) hypertension (ICD-10) Surgical History H/O right inguinal hernia repair ?Z98.890 - Other specified postprocedural states (ICD-10) ?Z87.19 - Personal history of other diseases of the digestive system (ICD-10) History of repair of hiatal hernia ?Z98.890 - Other specified postprocedural states (ICD-10) ?Z87.19 - Personal history of other diseases of the digestive system (ICD-10) H/O left inguinal hernia repair ?Z98.890 - Other specified postprocedural states (ICD-10) ?Z87.19 - Personal history of other diseases of the digestive system (ICD-10) Social History Narrative: Patient denies smoking and rarely drinks alcohol. He is retired but is very active. He lives on his own but his daughter lives only 1.5 miles away from him and is helping him when he needs something. Smoking Status: Former smoker Do you use any of these nicotine containing products: None Second hand tobacco smoke exposure: No How often do you have a drink containing alcohol: never How often do you have six or more drinks on one occasion: Never AUDIT-C Alcohol total score: 0 Non-prescribed substance use: denies use Caffeine: Yes (COFFEE) service: No Exam Narrative: Exam Narrative: Well-nourished well-developed elderly patient in no acute distress. Alert and oriented. Answers questions appropriately. Mood and affect are appropriate. Thoughts are goal oriented and rational. No tangential or magical thinking noted. Patient speaks in full sentences without needing to catch his breath. HEENT: Normocephalic atraumatic. Pupils are equally round reactive to light. Extraocular muscles are intact. Conjunctivae are moist without any icterus noted. Moist mucous membranes. Posterior pharynx is normal. Neck is soft without any lymphadenopathy or thyromegaly. TMs are clear bilaterally. Cardiovascular: Distant heart sounds. Regular rate and rhythm. Lungs: Clear to auscultation bilaterally no wheezes rhonchi or rales are appreciated. Patient takes deep breaths without any discomfort. Abdomen: Soft and nontender nondistended with normal bowel sounds. Extremities: Bilateral lower extremities show 2+ pitting edema bilaterally. Skin: Well perfused. Strength is 5/5 of the upper and lower extremities. Hand international specialist is normal and symmetric. Cranial nerves 3-12 are normal. Druolp-he-efpx is normal. Patient has horizontal nystagmus to both the left and the right, greater when he is looking to his right. No vertical nystagmus is present. Symptoms are reproduced when he goes from a lying to a sitting position. Symptoms nishi when he closes his eyes. Const: Vital Signs, click to edit/add: Vital Signs - 24 hr 07/23/24 20:04 07/23/24 20:22 07/23/24 20:30 Temperature 97.1 F L Pulse Rate 75 70 Pulse Rate [Right Pulse Oximeter] 59 L Respiratory Rate 20 15 Blood Pressure Blood Pressure [Le ft Upper Arm] 194/117 H Pulse Oximetry 93 92 92 Oxygen Delivery Me thod Room Air 07/23/24 20:37 07/23/24 20:38 07/23/24 20:45 Temperature Pulse Rate 70 60 69 Pulse Rate [Right Pulse Oximeter] Respiratory Rate 20 20 Blood Pressure 183/100 H Blood Pressure [Le ft Upper Arm] Pulse Oximetry 93 91 90 Oxygen Delivery Me thod 07/23/24 20:48 07/23/24 21:00 07/23/24 21:03 Temperature Pulse Rate 58 L 69 62 Pulse Rate [Right Pulse Oximeter] Respiratory Rate 16 Blood Pressure 168/95 H 151/83 H Blood Pressure [Le ft Upper Arm] Pulse Oximetry 91 91 90 Oxygen Delivery Me thod 07/23/24 21:15 07/23/24 21:18 07/23/24 21:40 Temperature Pulse Rate 55 L 65 55 L Pulse Rate [Right Pulse Oximeter] Respiratory Rate 16 20 Blood Pressure 184/93 H Blood Pressure [Le ft Upper Arm] Pulse Oximetry 90 90 93 Oxygen Delivery Me thod 07/23/24 21:49 07/23/24 21:51 07/23/24 22:00 Temperature Pulse Rate 59 L 61 61 Pulse Rate [Right Pulse Oximeter] Respiratory Rate Blood Pressure 189/89 H Blood Pressure [Le ft Upper Arm] Pulse Oximetry 92 93 93 Oxygen Delivery Me thod 07/23/24 22:03 07/23/24 22:15 07/23/24 22:18 Temperature Pulse Rate 60 56 L 60 Pulse Rate [Right Pulse Oximeter] Respiratory Rate Blood Pressure 182/88 H 171/85 H Blood Pressure [Le ft Upper Arm] Pulse Oximetry 94 93 93 Oxygen Delivery Me thod 07/23/24 22:30 07/23/24 22:32 07/23/24 22:54 Temperature Pulse Rate 67 52 L 63 Pulse Rate [Right Pulse Oximeter] Respiratory Rate Blood Pressure 178/96 H Blood Pressure [Le ft Upper Arm] Pulse Oximetry 92 93 90 Oxygen Delivery Me thod 07/23/24 23:00 07/23/24 23:03 07/23/24 23:15 Temperature Pulse Rate 61 64 58 L Pulse Rate [Right Pulse Oximeter] Respiratory Rate Blood Pressure 177/86 H Blood Pressure [Le ft Upper Arm] Pulse Oximetry 91 92 92 Oxygen Delivery Me thod 07/23/24 23:17 Temperature Pulse Rate 57 L Pulse Rate [Right Pulse Oximeter] Respiratory Rate Blood Pressure 178/91 H Blood Pressure [Le ft Upper Arm] Pulse Oximetry 93 Oxygen Delivery Me thod Course Course ED Course: EKG, read by me, shows normal sinus rhythm with sinus arrhythmia and with premature atrial complexes. Pulse 71. Normal QRS interval, normal NE interval, normal QTC. IV established and patient is given 250 mL of normal saline and Zofran. Normal CBC Normal lactate Normal point of care troponin. Chemistries are unremarkable. Glucose 135. Normal LFTs. Normal CRP. BNP is 99. Normal TSH. UA shows 1+ blood, 1+ leukocyte esterase, 5-10 wbc's. Negative alcohol levels. Patient not feeling any better so we repeated normal saline bolus of another 250 mL an added meclizine. This also did not seem to help. Patient is unable to ambulate without assistance. Repeated troponin is unchanged, repeat EKG read by me, is also unchanged showing sinus arrhythmia. Discussed patient with Dr. Kelley will accept the patient for admission at this time. Patient is unsafe to go home given that he lives independently and cannot ambulate without assistance. Vital Signs Vital signs: Initial Vital Signs Temperature 97.1 F L 07/23/24 20:04 Temperature Source Temporal Artery Scan 07/23/24 20:04 Pulse Rate 59 L 07/23/24 20:04 Pulse Rhythm Irregular 07/23/24 20:04 Respiratory Rate 20 07/23/24 20:04 Respiratory Effort Normal, Spontaneous, Non-Labored 07/23/24 20:04 Respiratory Depth Normal 07/23/24 20:04 Respiratory Pattern Normal 07/23/24 20:04 Blood Pressure 194/117 H 07/23/24 20:04 Blood Pressure Mean 142 H 07/23/24 20:04 Blood Pressure Position Semi-Fowlers 07/23/24 20:04 Pulse Oximetry 93 07/23/24 20:04 Oxygen Delivery Method Room Air 07/23/24 20:04 Vital Signs Temperature 97.1 F L 07/23/24 20:04 Pulse Rate 59 L 07/23/24 20:04 Respiratory Rate 20 07/23/24 20:04 Blood Pressure 194/117 H 07/23/24 20:04 Pulse Oximetry 93 07/23/24 20:04 Oxygen Delivery Method Room Air 07/23/24 20:04 Temperature 97.1 F L 07/23/24 20:04 Pulse Rate 57 L 07/23/24 23:17 Respiratory Rate 20 07/23/24 21:18 Blood Pressure 178/91 H 07/23/24 23:17 Pulse Oximetry 93 07/23/24 23:17 Oxygen Delivery Method Room Air 07/23/24 20:04 Medications Administered Medications: Discontinued Medications Generic Name Dose Route Start Last Admin Trade Name Freq PRN Reason Stop Dose Admin Sodium Chloride 250 mls @ 250 mls/hr 07/23/24 20:20 07/23/24 22:18 0.9 % Sodium Chloride 250 Ml IV 07/23/24 21:19 Infused .Q1H ONE Infusion Sodium Chloride 250 mls @ 250 mls/hr 07/23/24 21:58 07/23/24 23:40 0.9 % Sodium Chloride 250 Ml IV 07/23/24 22:57 Infused .Q1H ONE Infusion Meclizine HCl 25 mg 07/23/24 21:58 07/23/24 22:18 Meclizine Hcl 25 Mg Tablet PO 07/23/24 21:59 25 mg ONCE ONE Administration Ondansetron HCl 4 mg 07/23/24 20:20 07/23/24 20:36 Ondansetron 2 Mg/Ml Inj IVP 07/23/24 20:21 4 mg ONCE ONE Administration Medical Decision Making MDM Narrative Medical decision making narrative: 88-year-old male with vertigo. Patient will be admitted for further management. Medical Records Medical records reviewed: Yes I reviewed the patient's medical records Lab Data Lab results reviewed: Yes I reviewed the patient's lab results Labs: Lab Results 07/23/24 07/23/24 07/23/24 Range/Units 20:10 20:20 20:21 WBC 7.95 (4.50-11.00) K/uL RBC 5.25 (4.30-5.90) m/uL Hgb 15.7 (13.5-17.5) gm/dL Hct 47.7 (37.0-53.0) % MCV 91 (80-100) fL MCH 30 (26-34) pg MCHC 33 (32-36) gm/dL RDW Coeff of Jeniffer 14.0 (11.5-15.5) % Plt Count 149 (140-440) K/uL Neut % (Auto) 66.5 (42.0-72.0) % Lymph % (Auto) 19.1 L (20-44) % [place] % (Auto) 8.6 (0.0-11.0) % Eos % (Auto) 4.3 (0.0-7.0) % Baso % (Auto) 0.6 (0.0-3.0) % Neut # (Auto) 5.29 (1.7-7.0) K/uL Lymph # (Auto) 1.50 (0.90-2.90) K/uL [place] # (Auto) 0.70 (0.00-0.90) K/UL Eos # (Auto) 0.34 (0.00-0.50) K/uL Baso # (Auto) 0.05 (0.00-0.30) K/uL Abs Immat Gran (auto) 0.07 (0.00-0.30) K/uL Imm/Tot Granulo (auto) 0.9 % Sodium 139 (135-149) mmol/L Potassium 3.6 (3.6-5.1) mmol/L Chloride 104 (96-114) mmol/L Carbon Dioxide 28 (20-32) mmol/L Anion Gap 7 (7-15) mEq/L BUN 18 (7-30) mg/dL Creatinine 0.9 (0.5-1.5) mg/dL Estimated Creat Clear 48.66 Estimated GFR 83 ml/min Glucose 135 H (60-115) mg/dL Lactate 1.5 (0.5-1.9) mmol/L Calcium 8.6 (8.4-10.6) mg/dL Total Bilirubin 0.8 (0.1-1.5) mg/dL Direct Bilirubin 0.3 (0.0-0.5) mg/dL AST 27 (12-35) U/L ALT 19 (4-50) U/L Alkaline Phosphatase 98 (40-150) U/L Troponin I < 0.01 (0.01-0.04) ng/mL C-Reactive Protein < 0.5 L (0.5-1.0) mg/dL NT-Pro-B Natriuret Pep 99 (See Note) pg/mL Total Protein 6.5 (6.0-8.3) g/dL Albumin 3.9 (3.3-5.0) g/dL TSH 2.810 (0.270-4.20) uIU/mL Urine Color (Yellow) Urine Appearance (Clear) Urine pH (5.0-8.5) Ur Specific [place] (1.000-1.030) Urine Protein (Negative) Urine Glucose (UA) (Negative) Urine Ketones (Negative) Urine Blood (Negative) Urine Nitrite (Negative) Urine Bilirubin (Negative) Urine Urobilinogen (0.2-1.0) Ur Leukocyte Esterase (Negative) Urine RBC (0-2) Urine WBC (0-5) Ur Squamous Epith Cells (None-Few) Urine Bacteria (None) Ethyl Alcohol < 0.01 (0.01-0.03) % POC Troponin I 0.01 (0.01-0.04) ng/ml 07/23/24 07/23/24 Range/Units 21:40 22:30 WBC (4.50-11.00) K/uL RBC (4.30-5.90) m/uL Hgb (13.5-17.5) gm/dL Hct (37.0-53.0) % MCV (80-100) fL MCH (26-34) pg MCHC (32-36) gm/dL RDW Coeff of Jeniffer (11.5-15.5) % Plt Count (140-440) K/uL Neut % (Auto) (42.0-72.0) % Lymph % (Auto) (20-44) % [place] % (Auto) (0.0-11.0) % Eos % (Auto) (0.0-7.0) % Baso % (Auto) (0.0-3.0) % Neut # (Auto) (1.7-7.0) K/uL Lymph # (Auto) (0.90-2.90) K/uL [place] # (Auto) (0.00-0.90) K/UL Eos # (Auto) (0.00-0.50) K/uL Baso # (Auto) (0.00-0.30) K/uL Abs Immat Gran (auto) (0.00-0.30) K/uL Imm/Tot Granulo (auto) % Sodium (135-149) mmol/L Potassium (3.6-5.1) mmol/L Chloride (96-114) mmol/L Carbon Dioxide (20-32) mmol/L Anion Gap (7-15) mEq/L BUN (7-30) mg/dL Creatinine (0.5-1.5) mg/dL Estimated Creat Clear Estimated GFR ml/min Glucose (60-115) mg/dL Lactate (0.5-1.9) mmol/L Calcium (8.4-10.6) mg/dL Total Bilirubin (0.1-1.5) mg/dL Direct Bilirubin (0.0-0.5) mg/dL AST (12-35) U/L ALT (4-50) U/L Alkaline Phosphatase (40-150) U/L Troponin I (0.01-0.04) ng/mL C-Reactive Protein (0.5-1.0) mg/dL NT-Pro-B Natriuret Pep (See Note) pg/mL Total Protein (6.0-8.3) g/dL Albumin (3.3-5.0) g/dL TSH (0.270-4.20) uIU/mL Urine Color Yellow (Yellow) Urine Appearance Clear (Clear) Urine pH 7.0 (5.0-8.5) Ur Specific [place] 1.020 (1.000-1.030) Urine Protein Negative (Negative) Urine Glucose (UA) Negative (Negative) Urine Ketones Negative (Negative) Urine Blood 1+ A (Negative) Urine Nitrite Negative (Negative) Urine Bilirubin Negative (Negative) Urine Urobilinogen 1.0 (0.2-1.0) Ur Leukocyte Esterase 1+ A (Negative) Urine RBC 2-5 A (0-2) Urine WBC 5-10 A (0-5) Ur Squamous Epith Cells None (None-Few) Urine Bacteria Many A (None) Ethyl Alcohol (0.01-0.03) % POC Troponin I 0.01 (0.01-0.04) ng/ml ECG Data Attestation: I personally reviewed and interpreted this ECG as follows: Discharge Plan Discharge Clinical Impression: Vertigo Patient Disposition: Admitted As Observation
[2024-07-23 20:27] LABS: Lactate* 1.5 mmol/L (0.5-1.9)
[2024-07-23 20:31] LABS: Troponin, Point-of-Care* 0.01 ng/ml (0.01-0.04)
[2024-07-23 20:32] LABS: Basophils Absolute Auto 0.05 K/uL (0.00-0.30); Basophils Percent Auto 0.6 % (0.0-3.0); Eosinophils Absolute Auto 0.34 K/uL (0.00-0.50); Eosinophils Percent Auto 4.3 % (0.0-7.0); Hematocrit 47.7 % (37.0-53.0); Hemoglobin* 15.7 gm/dL (13.5-17.5); Immature Granulocytes Abs Auto 0.07 K/uL (0.00-0.30); Immature Granulocytes Pct Auto 0.9 %; Lymphocytes Percent Auto 19.1 % (20-44); Mean Corpuscular HGB Conc 33 gm/dL (32-36); Mean Corpuscular Hemoglobin 30 pg (26-34); Mean Corpuscular Volume 91 fL (80-100); Monocytes Percent Auto 8.6 % (0.0-11.0); Neutrophils Absolute Auto 5.29 K/uL (1.7-7.0); Neutrophils Percent Auto 66.5 % (42.0-72.0); Platelet Count* 149 K/uL (140-440); Red Blood Count 5.25 m/uL (4.30-5.90); White Blood Count* 7.95 K/uL (4.50-11.00)
[2024-07-23 20:33] LABS: Slide Review Reflex No
[2024-07-23] MEDS: ONDANSETRON 2 MG/ML inj 4 MG IVP (20:36)
[2024-07-23] MEDS: 0.9 % SODIUM CHLORIDE 250 ml 250 ML IV ×2 (20:36→22:18)
[2024-07-23 20:46] LABS: Albumin* 3.9 g/dL (3.3-5.0); Chloride* 104 mmol/L (96-114); Potassium* 3.6 mmol/L (3.6-5.1); Sodium* 139 mmol/L (135-149)
[2024-07-23 20:48] LABS: Blood Urea Nitrogen* 18 mg/dL (7-30); Creatinine* 0.9 mg/dL (0.5-1.5); Est. Creatinine Clearance* 48.66; Estimated Glomerular Filt Rate 83 ml/min
[2024-07-23 20:49] LABS: Alanine Aminotransferase* 19 U/L (4-50); Alkaline Phosphatase* 98 U/L (40-150); Anion Gap 7 mEq/L (7-15); Aspartate Amino Transferase* 27 U/L (12-35); Bilirubin Direct* 0.3 mg/dL (0.0-0.5); Bilirubin Total* 0.8 mg/dL (0.1-1.5); Calcium* 8.6 mg/dL (8.4-10.6); Carbon Dioxide* 28 mmol/L (20-32); Glucose* 135 mg/dL (60-115); Total Protein* 6.5 g/dL (6.0-8.3)
[2024-07-23 20:51] LABS: Ethanol* < 0.01 % (0.01-0.03)
[2024-07-23 20:54] LABS: C Reactive Protein* < 0.5 mg/dL (0.5-1.0)
[2024-07-23 20:59] LABS: NT Pro B Type NatriureticPept* 99 pg/mL (See Note)
[2024-07-23 21:02] LABS: Troponin I* < 0.01 ng/mL (0.01-0.04)
[2024-07-23 21:54] LABS: Appearance Urine Clear (Clear); Bilirubin Urine Negative (Negative); Blood Urine 1+ (Negative); Color Urine Yellow (Yellow); Glucose Urine Negative (Negative); Ketones Urine Negative (Negative); Leukocyte Esterase Urine 1+ (Negative); Nitrite Urine Negative (Negative); Protein Urine Negative (Negative)
[2024-07-23] MEDS: MECLIZINE HCL 25 MG TABLET PO (22:18)
[2024-07-23 22:20] LABS: Bacteria Urine Many
[2024-07-23 22:45] LABS: Troponin, Point-of-Care* 0.01 ng/ml (0.01-0.04)
--- NOTE | 2024-07-23 23:06 | CRLHL7_ITS ---
For Patients: As a result of the Century Cures Act, medical imaging exams and procedure reports are released immediately into your electronic medical record. You may view this report before your referring provider. If you have questions, please contact your health care provider. INDICATION: Dizziness. TECHNIQUE: Chest 2 view. COMPARISON: Chest radiograph 01/30/2024. FINDINGS: Cardiovascular: Heart size and pulmonary vasculature are within normal limits. Lungs and pleural spaces: Low lung volumes. Linear atelectasis or scarring in the right lower lung. Small opacity in the left lung base. No sign of pleural effusion. No pneumothorax identified. Bones and soft tissues: Degenerative changes of the spine. IMPRESSION: Low lung volumes. Small opacity in the left lung base may represent atelectasis or infiltrate. Dictated by Tere Doan MD @ 07/24/2024 12:50:51 AM (Electronically Signed)
--- NOTE | 2024-07-23 23:06 | CRLHL7_ITS ---
For Patients: As a result of the Century Cures Act, medical imaging exams and procedure reports are released immediately into your electronic medical record. You may view this report before your referring provider. If you have questions, please contact your health care provider. INDICATION: Dizziness TECHNIQUE: Non-contrast CT of the head is submitted. COMPARISON: CT brain dated 09/04/2022 FINDINGS: Moderate diffuse parenchymal volume loss with commensurate ex vacuo dilatation of the ventricles and sulci. There are nonspecific low attenuation white matter changes consistent with chronic microvascular disease. No sign of mass, hemorrhage, or midline shift. Mild scattered mucosal thickening in the paranasal sinuses. The visualized orbits are grossly unremarkable. No skull fractures. IMPRESSION: No acute intracranial findings. Please note that all CT scans at this facility use dose modulation, iterative reconstruction, and/or weight-based dosing when appropriate to reduce radiation dose to as low as reasonably achievable. Dictated by Evangelista Jj MD @ 07/24/2024 12:49:57 AM (Electronically Signed)
--- NOTE | 2024-07-23 23:58 | P.IMHP_ITS ---
Assessment and Plan Assessment and plan (1) Vertigo: Problem comment: Patient remains quite symptomatic. Unable to walk and having persistent nausea. Status: Acute (2) HTN (hypertension): Problem comment: Will not initiate treatment tonight but I recommended that he be treated for hypertension as it could be a cause of neurologic degeneration including strokes, small-vessel ischemic changes, impaired memory, impaired balance, vertigo Status: Acute (3) Obstructive uropathy: Problem comment: Reliant on self catheterization every 4 hours as needed Status: Acute (4) Thoracic aortic aneurysm: Problem comment: Patient tells me he would decline elective or emergency surgical intervention for this. On this basis will not recommend further surveillance or evaluation. Status: Acute (5) Epigastric pain: Problem comment: Patient described a brief episode of epigastric/lower substernal chest pain. Evaluate this for cardiac as well as gastroesophageal pain. Status: Acute Plan 88-year-old male admitted to the hospital with severe vertigo leading to nausea and chest/epigastric pain. He is admitted to observation status for further evaluation pending his clinical course. Total Time Spent Total Time Spent: Total time spent is 60 minutes in reviewing outside records, coordination of care and discussing with patient and other providers ongoing evaluation management. Hospitalist- H&P: HPI History of Present Illness Date Seen: 07/23/24 Chief complaint: hypertension Narrative: Giancarlo Ortez is a 88 year old male admitted to the hospital with severe dizziness. He reported use in and usual state of good health until he was sitting down on his couch to watch TV. As he sat down he had onset of a sense that he was spinning. This made him very unsteady. He tried to get up and walk but he felt like he would fall over. He got nauseated and had a small emesis. This was blood tinged. He reported he felt some epigastric/lower chest discomfort at this time as well. That lasted about 2 minutes. No associated dyspnea. No radiation of pain. He reports that he has this type of brief chest/epigastric aching sensation occur occasionally. He does not recall having medical evaluation of this in the past. He reports this is similar to an episode that he had in August of 2022 when he was here. At that time he had evaluation including an MRI of the brain which showed no acute infarct but moderate chronic microvascular ischemic changes and multiple cerebral microbleeds there were thought to be chronic and due to amyloid angiopathy. He has longstanding hypertension. He apparently was briefly treated for this but then stop treatment. He tells me the treatments stopped at the advice of his provider though he remained quite hypertensive. He tells me now that he is not interested in treatment for hypertension. His records indicate he has an ascending aortic aneurysm. This was followed by [facility] in the past but he has not had recent visit to reassess this for at least 2 years. Prior to that time he said it was stable. It runs in his family. He tells me that he would not be interested in surgery to repair this. He has a history of a hiatal hernia that was surgically repaired, Shara fundoplication? As a result of this he tells me that he does not really throw up though sometimes he will gag as he did today. When he does is he produces just a small amount of sputum or gastric contents, less than a tsp. [facility] Medical History (Updated 07/24/24 @ 00:15 by Devendra Kelley MD) Wrist fracture, right ?S62.101A - Fracture of unspecified carpal bone, right wrist, initial encounter for closed fracture (ICD-10) Hiatal hernia ?K44.9 - Diaphragmatic hernia without obstruction or gangrene (ICD-10) Thoracic aortic aneurysm ?I71.20 - Thoracic aortic aneurysm, without rupture, unspecified (ICD-10) HTN (hypertension) ?I10 - Essential (primary) hypertension (ICD-10) Surgical History H/O right inguinal hernia repair ?Z98.890 - Other specified postprocedural states (ICD-10) ?Z87.19 - Personal history of other diseases of the digestive system (ICD-10) History of repair of hiatal hernia ?Z98.890 - Other specified postprocedural states (ICD-10) ?Z87.19 - Personal history of other diseases of the digestive system (ICD-10) H/O left inguinal hernia repair ?Z98.890 - Other specified postprocedural states (ICD-10) ?Z87.19 - Personal history of other diseases of the digestive system (ICD-10) Social History (Updated 07/24/24 @ 00:07 by Devendra Kelley MD) Narrative: He lives at assisted living at [facility] in [place]. He moved there fairly recently. He has a remote history of smoking having quit in 1963. He does not drink alcohol. His code status is DNR. His daughter Alanna is [facility] power of deputy commonwealth's attorney. Smoking Status: Former smoker Do you use any of these nicotine containing products: None Second hand tobacco smoke exposure: No How often do you have a drink containing alcohol: never How often do you have six or more drinks on one occasion: Never AUDIT-C Alcohol total score: 0 Non-prescribed substance use: denies use Caffeine: Yes (COFFEE) service: No Meds Home Medications and Allergies Home Medications ?Medication ?Instructions ?Recorded ?Confirmed ?Type albuterol sulfate 90 mcg/actuation 2 puff inhalation Q 4-6H PRN 01/30/24 02/02/24 Rx aerosol inhaler (Ventolin HFA) shortness of breath or wheezing #8.5 grams fluticasone propionate 115 2 puff inhalation Q12H #12 grams 03/09/24 Rx mcg-salmeterol 21 mcg/actuation HFA inhaler (Advair HFA) Home Medication Comments: Patient reports not having or using Advair. He uses albuterol inhaler rarely Allergies Allergy/AdvReac Type Severity Reaction Status Date / Time Shrimp Flavor Allergy Unknown breathing Uncoded 02/02/24 11:15 baking soda AdvReac Mild Uncoded 02/02/24 11:15 Exam Narrative: Exam Narrative: He is alert and appears in no distress. He is hard of hearing. Speech is fluent. He is oriented to his circumstances. No facial asymmetry. Eyes are normal. Extraocular movements are full. No nystagmus. Visual dumont are intact. Oropharynx is normal. Tongue is midline. Mucous membranes are dry. Neck is supple without mass or adenopathy. Otolith repositioning maneuvers do not trigger episodes of vertigo or nystagmus. Respirations with diminished davina th sounds. Mild prolongation of expiratory phase. Rare basilar wheeze. Cardiovascular: S1, S2, regular rhythm. No murmur gallop or rub. Abdomen is soft. Mild epigastric tenderness. No mass. External genitalia normal. Extremities are somewhat cool to touch. Intact pedal pulses. 3+ edema in the ankles. Intact strength in all 4 extremities. [id number] and heel-alcocer normal without dysmetria or ataxia. Const: Vital Signs, click to edit/add: Vital Signs - 24 hr 07/23/24 20:04 07/23/24 20:22 07/23/24 20:30 Temperature 97.1 F L Pulse Rate 75 70 Pulse Rate [Right Pulse Oximeter] 59 L Respiratory Rate 20 15 Blood Pressure Blood Pressure [Le ft Upper Arm] 194/117 H Pulse Oximetry 93 92 92 Oxygen Delivery Me thod Room Air 07/23/24 20:37 07/23/24 20:38 07/23/24 20:45 Temperature Pulse Rate 70 60 69 Pulse Rate [Right Pulse Oximeter] Respiratory Rate 20 20 Blood Pressure 183/100 H Blood Pressure [Le ft Upper Arm] Pulse Oximetry 93 91 90 Oxygen Delivery Me thod 07/23/24 20:48 07/23/24 21:00 07/23/24 21:03 Temperature Pulse Rate 58 L 69 62 Pulse Rate [Right Pulse Oximeter] Respiratory Rate 16 Blood Pressure 168/95 H 151/83 H Blood Pressure [Le ft Upper Arm] Pulse Oximetry 91 91 90 Oxygen Delivery Me thod 07/23/24 21:15 07/23/24 21:18 07/23/24 21:40 Temperature Pulse Rate 55 L 65 55 L Pulse Rate [Right Pulse Oximeter] Respiratory Rate 16 20 Blood Pressure 184/93 H Blood Pressure [Le ft Upper Arm] Pulse Oximetry 90 90 93 Oxygen Delivery Me thod 07/23/24 21:49 07/23/24 21:51 07/23/24 22:00 Temperature Pulse Rate 59 L 61 61 Pulse Rate [Right Pulse Oximeter] Respiratory Rate Blood Pressure 189/89 H Blood Pressure [Le ft Upper Arm] Pulse Oximetry 92 93 93 Oxygen Delivery Me thod 07/23/24 22:03 07/23/24 22:15 07/23/24 22:18 Temperature Pulse Rate 60 56 L 60 Pulse Rate [Right Pulse Oximeter] Respiratory Rate Blood Pressure 182/88 H 171/85 H Blood Pressure [Le ft Upper Arm] Pulse Oximetry 94 93 93 Oxygen Delivery Me thod 07/23/24 22:30 07/23/24 22:32 07/23/24 22:54 Temperature Pulse Rate 67 52 L 63 Pulse Rate [Right Pulse Oximeter] Respiratory Rate Blood Pressure 178/96 H Blood Pressure [Le ft Upper Arm] Pulse Oximetry 92 93 90 Oxygen Delivery Me thod 07/23/24 23:00 07/23/24 23:03 07/23/24 23:15 Temperature Pulse Rate 61 64 58 L Pulse Rate [Right Pulse Oximeter] Respiratory Rate Blood Pressure 177/86 H Blood Pressure [Le ft Upper Arm] Pulse Oximetry 91 92 92 Oxygen Delivery Me thod 07/23/24 23:17 07/23/24 23:18 07/23/24 23:39 Temperature Pulse Rate 57 L 57 L 70 Pulse Rate [Right Pulse Oximeter] Respiratory Rate Blood Pressure 178/91 H Blood Pressure [Le ft Upper Arm] Pulse Oximetry 93 93 92 Oxygen Delivery Me thod 07/23/24 23:45 07/23/24 23:48 Temperature Pulse Rate 68 76 Pulse Rate [Right Pulse Oximeter] Respiratory Rate Blood Pressure 181/94 H Blood Pressure [Le ft Upper Arm] Pulse Oximetry 94 95 Oxygen Delivery Me thod Documenting provider has reviewed patient's vital signs: yes Hospitalist - H&P: Result Labs Labs: Short CBC 07/23/24 Range/Units 20:10 WBC 7.95 (4.50-11.00) K/uL Hgb 15.7 (13.5-17.5) gm/dL Hct 47.7 (37.0-53.0) % Plt Count 149 (140-440) K/uL BMP 07/23/24 20:10 Sodium 139 Potassium 3.6 Chloride 104 Carbon Dioxide 28 BUN 18 Creatinine 0.9 Glucose 135 H Calcium 8.6 Cardiac Enzymes 07/23/24 Range/Units 20:10 Troponin I < 0.01 (0.01-0.04) ng/mL Liver Function 07/23/24 Range/Units 20:10 Total Bilirubin 0.8 (0.1-1.5) mg/dL Direct Bilirubin 0.3 (0.0-0.5) mg/dL AST 27 (12-35) U/L ALT 19 (4-50) U/L Alkaline Phosphatase 98 (40-150) U/L Albumin 3.9 (3.3-5.0) g/dL Urine 07/23/24 Range/Units 21:40 Urine Color Yellow (Yellow) Urine Appearance Clear (Clear) Urine pH 7.0 (5.0-8.5) Ur Specific Tad 1.020 (1.000-1.030) Urine Protein Negative (Negative) Urine Glucose (UA) Negative (Negative) ECG Attestation: I personally reviewed and interpreted this ECG as follows: (Sinus rhythm with frequent PACs. Noted acute ST-T changes) ECG interpretation date: 07/23/24
[2024-07-24 00:41] VITALS: BP 180/94; RESP 18; TEMP 36.9; O2SAT 92; BMI 28.6
[2024-07-24 01:30] VITALS: PULSE 56
[2024-07-24] MEDS: ONDANSETRON 2 MG/ML inj 4 MG IVP (02:50)
[2024-07-24] MEDS: SODIUM CHLORIDE 0.9 % (FLUSH) 10 ML SYRINGE 5 ML IVF ×2 (02:51→08:45)
[2024-07-24 02:53] VITALS: BP 165/88; RESP 18; TEMP 36.9; O2SAT 93
--- NOTE | 2024-07-24 05:26 | PC.NURSE ---
Shift note: Patient arrived at the floor at 2330 on a wheelchair. Conscious, alert and oriented. Ambulated with A1 due to dizziness. Bp was high on admission, recorded as 180 systolic. Other vital signs stable. Patient confirmed at he was once on antihypertensive medications but stopped taking it some times ago. Patient had pedal edema of about 3+ with periorbital edema. He denied SOB, cough, nausea, chest and abdominal pain.
[2024-07-24 07:00] VITALS: PULSE 53; PULSE 62; RESP 16
--- NOTE | 2024-07-24 07:11 | CRLHL7_ITS ---
For Patients: As a result of the Century Cures Act, medical imaging exams and procedure reports are released immediately into your electronic medical record. You may view this report before your referring provider. If you have questions, please contact your health care provider. Indication: Vertigo. Technique: Multiplanar, multisequence MRI of the brain was performed without intravenous contrast. Comparison: CT head 07/23/2024. MRI brain 09/04/2022. Findings: The corpus callosum, pituitary gland and clivus appear intact. Mild degenerative change visualized upper cervical spine. There is a punctate, 3 mm focus of restricted diffusion within the right centrum semiovale (series 5, image 44). Corresponding T2 FLAIR hyperintensity. Innumerable foci of chronic microhemorrhages throughout the brain parenchyma, most notably in a peripheral distribution. The ventricles are proportionate to the cerebral sulci. The 4th ventricle appears midline. The basal cisterns appear patent. No abnormal extra-axial fluid collection identified. Mild parenchymal volume loss. Moderate scattered T2 FLAIR hyperintense foci within the subcortical and periventricular white matter, favored to represent chronic ischemic microvascular disease. There is no intracranial mass, abnormal mass-effect or midline shift identified. Major intracranial vascular flow voids appear grossly intact. Thinning of the ocular lenses. Mild paranasal sinus mucosal disease. Impression: 1. Punctate right centrum semiovale acute/subacute infarct. 2. Moderate chronic ischemic microvascular disease. 3. Redemonstration of innumerable chronic microhemorrhages throughout the brain parenchyma, most suggestive of amyloid microangiopathy. Dictated by Gaurav Foss MD @ 07/24/2024 11:15:00 AM (Electronically Signed)
[2024-07-24 08:30] VITALS: BP 190/93; PULSE 62; RESP 16; TEMP 36.8; O2SAT 91
[2024-07-24 12:08] VITALS: BP 148/87; PULSE 57; RESP 16; O2SAT 93
--- NOTE | 2024-07-24 12:14 | CRLHL7_ITS ---
For Patients: As a result of the Century Cures Act, medical imaging exams and procedure reports are released immediately into your electronic medical record. You may view this report before your referring provider. If you have questions, please contact your health care provider. CLINICAL HISTORY: Acute neurological deficit. TECHNIQUE: Standard helical CT image acquisition through the head following the administration of intravenous contrast was performed. 3D and MIP reconstructions were performed at a separate workstation and permanently archived. COMPARISON: None available. FINDINGS: No intracranial proximal large vessel occlusion or flow-limiting luminal stenosis. No evidence of cerebral aneurysm. No findings to suggest an arterial-venous shunting lesion. The major dural venous sinuses and deep venous system are patent. IMPRESSION: No intracranial proximal large vessel occlusion, flow-limiting luminal stenosis, or cerebral aneurysm. Please note that all CT scans at this facility use dose modulation, iterative reconstruction, and/or weight-based dosing when appropriate to reduce radiation dose to as low as reasonably achievable. Dictated by Pablito Salguero MD @ 07/24/2024 4:21:58 PM (Electronically Signed)
--- NOTE | 2024-07-24 12:14 | CRLHL7_ITS ---
For Patients: As a result of the Century Cures Act, medical imaging exams and procedure reports are released immediately into your electronic medical record. You may view this report before your referring provider. If you have questions, please contact your health care provider. CLINICAL HISTORY: Stroke. TECHNIQUE: Standard helical CT image acquisition through the neck was performed after intravenous contrast bolus enhancement. 3D and MIP reconstructions were performed at a separate workstation and permanently archived. COMPARISON: None available. FINDINGS: The origins of the great vessels from the aortic arch are patent. The common carotid arteries are patent. Moderate (50-60 percent) and mild (less than 50 percent) atherosclerotic stenoses of the proximal left and right ICAs, respectively, by NASCET criteria. The more distal cervical segments of the ICAs are patent. The origins and cervical segments of the vertebral arteries are patent. IMPRESSION: 1. 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 2. Mild (less than 50 percent) atherosclerotic stenosis of the proximal right ICA by NASCET criteria. Please note that all CT scans at this facility use dose modulation, iterative reconstruction, and/or weight-based dosing when appropriate to reduce radiation dose to as low as reasonably achievable. Dictated by Pablito Salguero MD @ 07/24/2024 4:12:07 PM (Electronically Signed)
--- NOTE | 2024-07-24 14:33 | P.DS_ITS ---
DS: Providers Provider Date Seen: 07/24/24 Date of admission: 07/24/24 00:31 Primary care physician: Balaji Del Toro MD Admitting Clinician: Devendra Kelley MD Attending Physician on discharge: Devendra Kelley MD Date of Discharge: 07/24/24 DS: Diagnosis Discharge Diagnosis (1) Vertigo: Status: Acute Problem details: Patient admitted with fairly severe vertigo. Overnight this mostly resolved though he is still somewhat unsteady on his feet. Able to walk without assistance. 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 This is in the context of fairly significant micro hemorrhages from amyloid angiopathy. The stroke is probably not the cause of his vertigo. (3) Cerebral amyloid angiopathy: Status: Acute Problem details: Patient likely has cerebral amyloid angiopathy based on imaging findings. He should avoid aspirin and antiplatelet drugs. Recommend blood pressure control to minimize serious brain hemorrhage. (4) At risk for bleeding: Status: Acute Problem details: Avoid antiplatelet drugs due to cerebral amyloid angiopathy (5) Thoracic aortic aneurysm: Status: Acute Problem details: Patient tells me he would decline elective or emergency surgical intervention for this. On this basis will not recommend further surveillance or evaluation. Recommend blood pressure control (6) HTN (hypertension): Status: Acute Problem details: Will not initiate treatment tonight but I recommended that he be treated for hypertension as it could be a cause of neurologic degeneration including strokes, small-vessel ischemic changes, impaired memory, impaired balance, vertigo DS: Summary Hospital Course Hospital Course: Giancarlo Ortez (Jose) is a 88 year old male admitted to the hospital with severe dizziness. He reported use in and usual state of good health until he was sitting down on his couch to watch TV. As he sat down he had onset of a sense that he was spinning. This made him very unsteady. He tried to get up and walk but he felt like he would fall over. He got nauseated and had a small emesis. This was blood tinged. He reported he felt some epigastric/lower chest discomfort at this time as well. That lasted about 2 minutes. No associated dyspnea. No radiation of pain. He reports that he has this type of brief chest/epigastric aching sensation occur occasionally. He does not recall having medical evaluation of this in the past. He reports this is similar to an episode that he had in August of 2022 when he was here. At that time he had evaluation including an MRI of the brain which showed no acute infarct but moderate chronic microvascular ischemic changes and multiple cerebral microbleeds there were thought to be chronic and due to amyloid angiopathy. He has longstanding hypertension. He apparently was briefly treated for this but then stop treatment. He tells me the treatments stopped at the advice of his provider though he remained quite hypertensive. He tells me now that he is not interested in treatment for hypertension. His records indicate he has an ascending aortic aneurysm. This was followed by [facility] in the past but he has not had recent visit to reassess this for at least 2 years. Prior to that time he said it was stable. It runs in his family. He tells me that he would not be interested in surgery to repair this. He has a history of a hiatal hernia that was surgically repaired, Shara fundoplication? As a result of this he tells me that he does not really throw up though sometimes he will gag as he did today. When he does is he produces just a small amount of sputum or gastric contents, less than a tsp. Patient reported continuous improvement in his symptoms since admission. Vertigo has largely resolved. He still feels a little unsteady on his feet. Therapy felt he could safely walk without standby assistance. They did recommend consideration of outpatient therapy if he continues to have some unsteadiness. He underwent MRI of the brain which showed again multiple punctate hemorrhages consistent with cerebral amyloid angiopathy which were old and a tiny punctate right centrum semiovale infarct which is probably an incidental finding. CTA of head and neck showed mild diffuse disease without focal significant atherosclerotic lesions. In consultation with Stroke Neurology they recommended no antiplatelet therapy due to the risk of hemorrhage from amyloid angiopathy. They also indicated a need for blood pressure control. Status at Discharge Functional status at discharge: independent ambulation Time Spent with Patient Time attestation: Total time spent providing and/or coordinating discharge services: 45 minutes Time spent: Greater than 30 minutes Exam Narrative: Exam Narrative: He is alert and appears in no distress. Speech is normal. No facial asymmetry. Extraocular movements are full. No nystagmus. He does not have symptoms when he turns his head or does range of motion of his neck. Strength testing shows full strength in all 4 extremities. Normal coordination Const: Vital Signs, click to edit/add: Vital Signs - 24 hr 07/23/24 20:04 07/23/24 20:22 07/23/24 20:30 Temperature 97.1 F L Pulse Rate 75 70 Pulse Rate [Pulse Oximeter] Pulse Rate [Right Pulse Oximeter] 59 L Respiratory Rate 20 15 Blood Pressure Blood Pressure [Le ft Upper Arm] 194/117 H Blood Pressure [Ri ght Arm] Pulse Oximetry 93 92 92 Oxygen Delivery Me thod Room Air 07/23/24 20:37 07/23/24 20:38 07/23/24 20:45 Temperature Pulse Rate 70 60 69 Pulse Rate [Pulse Oximeter] Pulse Rate [Right Pulse Oximeter] Respiratory Rate 20 20 Blood Pressure 183/100 H Blood Pressure [Le ft Upper Arm] Blood Pressure [Ri ght Arm] Pulse Oximetry 93 91 90 Oxygen Delivery Me thod 07/23/24 20:48 07/23/24 21:00 07/23/24 21:03 Temperature Pulse Rate 58 L 69 62 Pulse Rate [Pulse Oximeter] Pulse Rate [Right Pulse Oximeter] Respiratory Rate 16 Blood Pressure 168/95 H 151/83 H Blood Pressure [Le ft Upper Arm] Blood Pressure [Ri ght Arm] Pulse Oximetry 91 91 90 Oxygen Delivery Me thod 07/23/24 21:15 07/23/24 21:18 07/23/24 21:40 Temperature Pulse Rate 55 L 65 55 L Pulse Rate [Pulse Oximeter] Pulse Rate [Right Pulse Oximeter] Respiratory Rate 16 20 Blood Pressure 184/93 H Blood Pressure [Le ft Upper Arm] Blood Pressure [Ri ght Arm] Pulse Oximetry 90 90 93 Oxygen Delivery Nh thod 07/23/24 21:49 07/23/24 21:51 07/23/24 22:00 Temperature Pulse Rate 59 L 61 61 Pulse Rate [Pulse Oximeter] Pulse Rate [Right Pulse Oximeter] Respiratory Rate Blood Pressure 189/89 H Blood Pressure [Le ft Upper Arm] Blood Pressure [Ri ght Arm] Pulse Oximetry 92 93 93 Oxygen Delivery Me thod 07/23/24 22:03 07/23/24 22:15 07/23/24 22:18 Temperature Pulse Rate 60 56 L 60 Pulse Rate [Pulse Oximeter] Pulse Rate [Right Pulse Oximeter] Respiratory Rate Blood Pressure 182/88 H 171/85 H Blood Pressure [Le ft Upper Arm] Blood Pressure [Ri ght Arm] Pulse Oximetry 94 93 93 Oxygen Delivery Me thod 07/23/24 22:30 07/23/24 22:32 07/23/24 22:54 Temperature Pulse Rate 67 52 L 63 Pulse Rate [Pulse Oximeter] Pulse Rate [Right Pulse Oximeter] Respiratory Rate Blood Pressure 178/96 H Blood Pressure [Le ft Upper Arm] Blood Pressure [Ri ght Arm] Pulse Oximetry 92 93 90 Oxygen Delivery Me thod 07/23/24 23:00 07/23/24 23:03 07/23/24 23:15 Temperature Pulse Rate 61 64 58 L Pulse Rate [Pulse Oximeter] Pulse Rate [Right Pulse Oximeter] Respiratory Rate Blood Pressure 177/86 H Blood Pressure [Le ft Upper Arm] Blood Pressure [Ri ght Arm] Pulse Oximetry 91 92 92 Oxygen Delivery Me thod 07/23/24 23:17 07/23/24 23:18 07/23/24 23:39 Temperature Pulse Rate 57 L 57 L 70 Pulse Rate [Pulse Oximeter] Pulse Rate [Right Pulse Oximeter] Respiratory Rate Blood Pressure 178/91 H Blood Pressure [Le ft Upper Arm] Blood Pressure [Ri ght Arm] Pulse Oximetry 93 93 92 Oxygen Delivery Me thod 07/23/24 23:45 07/23/24 23:48 07/24/24 00:41 Temperature 98.4 F Pulse Rate 68 76 Pulse Rate [Pulse Oximeter] Pulse Rate [Right Pulse Oximeter] Respiratory Rate 18 Blood Pressure 181/94 H Blood Pressure [Le ft Upper Arm] Blood Pressure [Ri ght Arm] 180/94 H Pulse Oximetry 94 95 92 Oxygen Delivery Me thod Room Air 07/24/24 01:30 07/24/24 02:53 07/24/24 07:00 Temperature 98.4 F Pulse Rate 56 L Pulse Rate [Pulse Oximeter] 62 Pulse Rate [Right Pulse Oximeter] Respiratory Rate 18 16 Blood Pressure Blood Pressure [Le ft Upper Arm] Blood Pressure [Ri ght Arm] 165/88 H Pulse Oximetry 93 Oxygen Delivery Me thod Room Air 07/24/24 07:00 07/24/24 08:30 07/24/24 12:08 Temperature 98.2 F Pulse Rate 53 L Pulse Rate [Pulse Oximeter] 62 57 L Pulse Rate [Right Pulse Oximeter] Respiratory Rate 16 16 Blood Pressure Blood Pressure [Le ft Upper Arm] Blood Pressure [Ri ght Arm] 190/93 H 148/87 H Pulse Oximetry 91 93 Oxygen Delivery Me thod Room Air Room Air Documenting provider has reviewed patient's vital signs: yes DS: Data Data Completed and Pending Labs on day of discharge: Labs from last 24 hours 07/23/24 07/23/24 07/23/24 22:30 21:40 20:21 WBC RBC Hgb Hct MCV MCH MCHC RDW Coeff of Jeniffer Plt Count Neut % (Auto) Lymph % (Auto) Thomas % (Auto) Eos % (Auto) Baso % (Auto) Neut # (Auto) Lymph # (Auto) Thomas # (Auto) Eos # (Auto) Baso # (Auto) Abs Immat Gran (auto) Imm/Tot Granulo (auto) Sodium Potassium Chloride Carbon Dioxide Anion Gap BUN Creatinine Estimated Creat Clear Estimated GFR Glucose Lactate Calcium Total Bilirubin Direct Bilirubin AST ALT Alkaline Phosphatase Troponin I C-Reactive Protein NT-Pro-B Natriuret Pep Total Protein Albumin TSH Urine Color Yellow Urine Appearance Clear Urine pH 7.0 Ur Specific [place] 1.020 Urine Protein Negative Urine Glucose (UA) Negative Urine Ketones Negative Urine Blood 1+ A Urine Nitrite Negative Urine Bilirubin Negative Urine Urobilinogen 1.0 Ur Leukocyte Esterase 1+ A Urine RBC 2-5 A Urine WBC 5-10 A Ur Squamous Epith Cells None Urine Bacteria Many A Ethyl Alcohol POC Troponin I 0.01 0.01 07/23/24 07/23/24 20:20 20:10 WBC 7.95 RBC 5.25 Hgb 15.7 Hct 47.7 MCV 91 MCH 30 MCHC 33 RDW Coeff of Jeniffer 14.0 Plt Count 149 Neut % (Auto) 66.5 Lymph % (Auto) 19.1 L Thomas % (Auto) 8.6 Eos % (Auto) 4.3 Baso % (Auto) 0.6 Neut # (Auto) 5.29 Lymph # (Auto) 1.50 Thomas # (Auto) 0.70 Eos # (Auto) 0.34 Baso # (Auto) 0.05 Abs Immat Gran (auto) 0.07 Imm/Tot Granulo (auto) 0.9 Sodium 139 Potassium 3.6 Chloride 104 Carbon Dioxide 28 Anion Gap 7 BUN 18 Creatinine 0.9 Estimated Creat Clear 48.66 Estimated GFR 83 Glucose 135 H Lactate 1.5 Calcium 8.6 Total Bilirubin 0.8 Direct Bilirubin 0.3 AST 27 ALT 19 Alkaline Phosphatase 98 Troponin I < 0.01 C-Reactive Protein < 0.5 L NT-Pro-B Natriuret Pep 99 Total Protein 6.5 Albumin 3.9 TSH 2.810 Urine Color Urine Appearance Urine pH Ur Specific [place] Urine Protein Urine Glucose (UA) Urine Ketones Urine Blood Urine Nitrite Urine Bilirubin Urine Urobilinogen Ur Leukocyte Esterase Urine RBC Urine WBC Ur Squamous Epith Cells Urine Bacteria Ethyl Alcohol < 0.01 POC Troponin I Preliminary micro results at discharge 07/23/24 21:40 Urine Culture - Preliminary Urine,Clean Catch Culture in Progress Imaging MR Brain: Radiologist's impression: Indication: Vertigo. Technique: Multiplanar, multisequence MRI of the brain was performed without intravenous contrast. Comparison: CT head 07/23/2024. MRI brain 09/04/2022. Findings: The corpus callosum, pituitary gland and clivus appear intact. Mild degenerative change visualized upper cervical spine. There is a punctate, 3 mm focus of restricted diffusion within the right centrum semiovale (series 5, image 44). Corresponding T2 FLAIR hyperintensity. Innumerable foci of chronic microhemorrhages throughout the brain parenchyma, most notably in a peripheral distribution. The ventricles are proportionate to the cerebral sulci. The 4th ventricle appears midline. The basal cisterns appear patent. No abnormal extra-axial fluid collection identified. Mild parenchymal volume loss. Moderate scattered T2 FLAIR hyperintense foci within the subcortical and periventricular white matter, favored to represent chronic ischemic microvascular disease. There is no intracranial mass, abnormal mass-effect or midline shift identified. Major intracranial vascular flow voids appear grossly intact. Thinning of the ocular lenses. Mild paranasal sinus mucosal disease. Impression: 1. Punctate right centrum semiovale acute/subacute infarct. 2. Moderate chronic ischemic microvascular disease. 3. Redemonstration of innumerable chronic microhemorrhages throughout the brain parenchyma, most suggestive of amyloid microangiopathy. Discharge Plan Discharge Disposition: Home, Self-Care Date of Admission: 07/24/24 00:31 Attending Provider on Discharge: Devendra Kelley Primary Care Provider: Balaji Del Toro Condition: Improved Anticipated Discharge Date/Time: 05/24/25 15:08 Discharge Medications: New losartan-hydrochlorothiazide 50-12.5 mg tablet 1 tab PO DAILY Qty: 90 0RF Continued albuterol sulfate [Ventolin HFA] 90 mcg/actuation HFA aerosol inhaler 2 puff inhalation Q4-6H PRN (Reason: shortness of breath or wheezing) Qty: 8.5 2RF Discontinued fluticasone propion-salmeterol [Advair HFA] 115-21 mcg/actuation HFA aerosol inhaler 2 puff inhalation Q12H Qty: 12 2RF Rx Instructions: administer with spacer Discharge Orders: Discharge Order (Routine); Ordered 07/24/24 Ordered By: Devendra Kelley Activity Level: Activity as Tolerated Follow Up Appointments: [facility] [Other] Referral Note: Follow-up in 1-2 weeks. Check blood pressure and basic metabolic panel in 1-2 weeks. Assess need for outpatient therapy. Forms: [employer] Info Instructions
--- NOTE | 2024-07-24 14:51 | PC.NURSE ---
Pt doing well today. Continues to be hypertensive, provider aware. Pt denies pain. No nausea or vomiting today. Tolerating oral intake well. Pt denies dizziness or lightheadedness with activity. Pt tolerated activity with therapy and ambulation in room well. BERLIN stockings applied. Daughter at bedside.
== END 2024-07-24 16:40 | disposition home or self-care (01) ==
LOC: ED 23:46 → MEDSURG 07-24 00:31
PROVIDERS: Admitting Provider Family Medicine; Emergency Provider Family Medicine; PCP Family Medicine; Visit Provider Family Medicine
DX: R42 Dizziness and giddiness (principal); I63.9 Cerebral infarction, unspecified; E85.4 Organ-limited amyloidosis; I68.0 Cerebral amyloid angiopathy; I10 Essential (primary) hypertension; Z91.89 Other specified personal risk factors, not elsewhere classified; R10.13 Epigastric pain; R11.0 Nausea; R07.89 Other chest pain; I71.20 Thoracic aortic aneurysm, without rupture, unspecified; R26.81 Unsteadiness on feet; Z98.890 Other specified postprocedural states; Z87.19 Personal history of other diseases of the digestive system; Z66 Do not resuscitate
CPT/HCPCS: 36415; 70450; 70496; 70498; 70551; 71046; 80048; 80076; 81001; 82077; 83605; 83880; 84443; 84484; 85025; 86140; 87086; 96361; 96374; 96376; 97116; 97162; 97165; 97530; 99284; 99285; A9270; G0378; J2405; J7050; Q9967

== ENCOUNTER 2024-08-24 07:40 | Outpatient (CLI) | payer MEDICARE, BC, SELFPAY ==
[2024-08-24] MEDS: REGADENOSON 0.4 MG/5 ML SYRINGE IVP (09:36)
[2024-08-24] MEDS: SODIUM CHLORIDE 0.9 % (FLUSH) 10 ML SYRINGE IVF (09:36)
[2024-08-24 09:46] VITALS: BP 188/109; PULSE 93; RESP 16
--- OUTSIDE RECORDS SUMMARY | 2024-08-24 10:15 | XMS_ITS | Clinical Summary ---
Author Organization [facility] Address [address] [place] [address] Care Team Providers Care Client Administrator Name Role Phone None Reported, Pcp Primary Care Provider Unavail able Source Comments Patient records contain information from all sites at [facility]. For routine questions regarding patient records, call [phone] during business hours, M-F 8:00 AM - 5:00 PM Central Time. Record requests for emergency care only can be directed to [phone] at any time.[facility] Allergies Active Allergy Reactions Criticality Noted [...] (03/04/2018): Added automatically from request for surgery [id number] Hypertension Chronic 01/09/2015 018 Overview (07/23/2016): Hypertension (HTN) Chronic Pain Chest 12/23/2013 10/13/2018 Immunizations Immunization Administration Dates Next Due PPSV23 11/10/2012 Td (Adult), adsorbed 04/21/2006 Tdap 04/21/2006 Social History Tobacco Use Types Packs/Day Years Used Date Smoking Tobacco: Former Cigarettes Q uit: 03/10/1963 Smokeless Tobacco: Never Tobacco Cessation:Counseling Given: Not Answered Alcohol Use Standard Drinks/Week Comments No 0 (1 standard drink = 0.6 oz pur e alcohol) Sex and Gender Information Value Date Recorded Sex Assigned at Not on file Legal Sex Male 10:26 AM [employer] Gender Identity Not on file Sexual Orientation Not on file Last Filed Vital Signs Vital Sign Reading Time Taken Comments Blood Pressure 162/88 03/18/2022 12:26 PM [employer] Pulse 66 03/18/2022 12:26 PM [employer] Temperature 36.7 C (98.1 F) 03/18/2022 12:26 PM [employer] Respiratory Rate 16 03/18/2022 12:26 PM [employer] Oxygen Saturation 92% 03/18/2022 12:26 PM [employer] Inhaled Oxygen Concentration - - Weight 83.2 kg (183 lb 6.8 oz) 03/18/2022 12:31 PM [employer] Height 170.5 cm (5' 7.13) 03/09/2019 7:43 AM CS T Body Mass Index 28.62 03/09/2019 7:43 AM [employer] Plan of Treatment Health Maintenance Due Date [...] this topic Medical Devices Implanted Type Area Neighborhood Coordinator Device Identifier Shelf Expiration Date Model / Serial / Lot Hardware E.G. Pins/Screws/Ro ds Hardware e.g. pins/screws /rods Right: Wrist Msh Prl Latisha Polyprp 3x6 - [id number] Implanted:Qty: 1 on 03/25/2018 by Jefe Elizabeth M.D. at [facility] Mesh or Patch Left: Abdomen Ethicon [id number] 06/30/2020 PMII / / [id number] Insurance [facility] MEDIC[facility] Advance Directives For more information, please contact: [phone] * Full Code (Latest Code Status on File) Date Activated Date Inactivated Comments 03/25/2018 10:18 AM 03/25/2018 8:57 PM Question Answer Comments Full Code: Discussed Care Teams Client Administrator Relationship Specialty Start Date End Date None Reported, Pcp PCP - General Family Medicine 05/08/22
--- NOTE | 2024-08-24 10:25 | W.PM.STED ---
Stress Test Note Date Date Seen: 08/24/24 Date of test: 08/24/24 Providers Referring provider: Corie Newberry Primary care provider: Balaji Del Toro Stress test physician: Yusra Benitez Stress Test Note Stress test ordered: Lexiscan Indication for test: Chest pain Stress test medicine: Lexiscan Results discussion: Resting EKG: Sinus rhythm with first-degree AV block, 64 beats per minute. Premature atrial complexes. Resting blood pressure: 176/80 Stress test: Patient is consented on ordered stress test of Lexiscan and agrees to proceed. Patient felt short episode of lightheadedness/dizziness after the injection of regadenoson but did recover quickly. No chest pain noted. Patient had a very infrequent PVC seen during monitoring but no arrhythmia. Maximal blood pressure was 188/109. Patient met no diagnostic criteria for ischemia well on EKG monitoring. He was asymptomatic at time of discharge. He will get post stress nuclear medicine images done and then discharged to home. Impression: Subjectively with some lightheadedness/dizziness but no chest discomfort, objectively negative EKG portion of this stress test. Follow up suggested: Obtain the post-stress images and discharge to home. He will await for report from ordering physician once the images have been read.
== END 2024-08-24 11:14 | disposition home or self-care (01) ==
LOC: STRESS 07:42
PROVIDERS: PCP Family Medicine; Visit Provider Family Medicine
DX: R07.89 Other chest pain (principal); E85.4 Organ-limited amyloidosis; I68.0 Cerebral amyloid angiopathy; I10 Essential (primary) hypertension
CPT/HCPCS: 78452; 93016; 93017; A9500; J2785

== ENCOUNTER 2024-09-20 14:28 | Outpatient (CLI) | payer MEDICARE, BC, SELFPAY | END 2024-09-20 14:29 | disposition home or self-care (01) | PROVIDERS: PCP Family Medicine; Visit Provider Family Medicine | DX: I10 Essential (primary) hypertension (principal); J44.9 Chronic obstructive pulmonary disease, unspecified | CPT/HCPCS: 80053 ==

== ENCOUNTER 2024-09-21 13:30 | Outpatient (CLI) | payer MEDICARE, BC, SELFPAY | END 2024-09-21 13:31 | disposition home or self-care (01) | LOC: NFLDREF 09-23 02:34 | PROVIDERS: PCP Family Medicine; Referring Provider Family Medicine; Visit Provider Family Medicine | DX: J44.9 Chronic obstructive pulmonary disease, unspecified (principal) | CPT/HCPCS: 82043; 82570 ==